=== PATIENT | female | born 1960 | race Caucasian/White ===

== ENCOUNTER 2024-07-07 11:50 | Emergency (ER) | payer MEDICARE, SELFPAY ==
[2024-07-07 12:22] VITALS: BP 103/67; PULSE 84; RESP 18; TEMP 36.9; O2SAT 92; BMI 19.7
--- NOTE | 2024-07-07 13:03 | ED_ITS ---
HPI - General Adult General Chief complaint: Extremity Pain/Injury, Lower Stated complaint: poss R leg wound infection Time Seen by Provider: 07/07/24 12:04 Source: patient Mode of arrival: ambulatory Limitations: no limitations History of Present Illness HPI narrative: 64-year-old female presenting today with concerns about a leg wound infection. Patient hit her leg several weeks ago. Then approximately 2 weeks ago she noticed that there is increased swelling and what she describes as a blood blister. She states that she went to the doctor at that time in the opened up and drained it. Since then the area has been turning darker purple and black. She does have an appointment schedule L line on July 18. She denies any systemic symptoms such as fevers or chills. No nausea or vomiting. PMHx: Oxygen dependent COPD, pulmonary hypertension. 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 Because of this, she takes Xarelto. However, she stop taking her Xarelto about a week or so ago because she was concerned that she was going to ?bleed to ? when she noticed that she had a blood blister. She denies any personal history of blood clots in the past. States that she has a grandfather who had multiple strokes, unclear at what age. Denies any other family history of blood clots. Of note, patient was instructed to be on oxygen at all times. She states that she does not do that because it is not convenient. She does use 3-4 L at night. Patient was a smoker, quit in 1988. Was able to get patient's problem list which does states the patient has a history of chronic pain, hearing loss, polycythemia and hypercoagulopathy, patent ductus arteriosus, Eisenmenger syndrome, and oxygen dependent COPD. Related Data Home Medications ?Medication ?Instructions ?Recorded ?Confirmed albuterol sulfate 90 mcg/actuation inhalation 11/06/22 11/06/22 aerosol inhaler fluticasone fur. 100 mcg-umeclid 1 ea inhalation DAILY 11/06/22 11/06/22 62.5 mcg-vilant 25 mcg inhalat.powder (Trelegy Ellipta) macitentan 10 mg tablet (Opsumit) 10 mg PO DAILY 11/06/22 11/06/22 rivaroxaban 20 mg tablet (Xarelto) 20 mg PO DAILY 11/06/22 11/06/22 sildenafil (pulm.hypertension) 20 mg PO 11/06/22 11/06/22 mg tablet (Revatio) tizanidine 4 mg tablet 4 mg PO QPM 11/06/22 11/06/22 Allergies Allergy/AdvReac Type Severity Reaction Status Date / Time oxycodone Allergy Unknown Shakiness Verified 11/06/22 12:32 Sulfa (Sulfonamide Allergy Unknown Rash Verified 11/06/22 12:32 Antibiotics) Review of Systems Status of ROS: Reports: 10 or more systems reviewed and unremarkable except as noted in History and below Exam Narrative: Exam Narrative: Pain, well-developed patient in no acute distress. Alert and oriented. Answers questions appropriately. Mood and affect are appropriate. Thoughts are goal oriented and rational. No tangential or magical thinking noted. Patient speaks in full sentences without needing to catch her breath. Patient seems to have poor insight into her medical conditions. HEENT: Normocephalic atraumatic. Pupils are equally round reactive to light. Extraocular muscles are intact. Conjunctivae are moist without any icterus noted. Moist mucous membranes. Extremities: Right medial lower leg has a large necrotic area with surrounding violaceous skin. Not significantly hot to touch. She has healing ecchymosis all the way up the lower leg to just distal to the knee. Const: Vital Signs, click to edit/add: Vital Signs - 24 hr 07/07/24 12:22 Temperature 98.5 F Pulse Rate [Pulse Oximeter] 84 Respiratory Rate 18 Blood Pressure [Ri ght Upper Arm] 103/67 Pulse Oximetry 92 Oxygen Delivery Me thod Nasal Cannula Oxygen Flow Rate 3 Course Course ED Course: I spoke to who recommends debridement. I spoke to the patient about doing local anesthesia and debridement in the ER, patient became tearful at this prospect and requested to be put to sleep. Therefore patient will have surgery in the morning. She will be NPO at midnight, continue to hold her Xarelto at this time. We did check blood work today: CBC shows hemoglobin of 17.7, hematocrit is 61.1. Platelet count is 135. Chemistries are unremarkable. Normal CRP. Vital Signs Vital signs: Initial Vital Signs Temperature 98.5 F 07/07/24 12:22 Temperature Source Temporal Artery Scan 07/07/24 12:22 Pulse Rate 84 07/07/24 12:22 Respiratory Rate 18 07/07/24 12:22 Blood Pressure 103/67 07/07/24 12:22 Blood Pressure Mean 79 07/07/24 12:22 Pulse Oximetry 92 07/07/24 12:22 Oxygen Delivery Method Nasal Cannula 07/07/24 12:22 Oxygen Flow Rate 3 07/07/24 12:22 Vital Signs Temperature 98.5 F 07/07/24 12:22 Pulse Rate 84 07/07/24 12:22 Respiratory Rate 18 07/07/24 12:22 Blood Pressure 103/67 07/07/24 12:22 Pulse Oximetry 92 07/07/24 12:22 Oxygen Delivery Method Nasal Cannula 07/07/24 12:22 Oxygen Flow Rate 3 07/07/24 12:22 Temperature 98.5 F 07/07/24 12:22 Pulse Rate 84 07/07/24 12:22 Respiratory Rate 18 07/07/24 12:22 Blood Pressure 103/67 07/07/24 12:22 Pulse Oximetry 92 07/07/24 12:22 Oxygen Delivery Method Nasal Cannula 07/07/24 12:22 Oxygen Flow Rate 3 07/07/24 12:22 Medical Decision Making MDM Narrative Medical decision making narrative: 64-year-old female with a nonhealing wound of the right lower extremity, with an area of necrosis. Patient will proceed to the OR in the morning for debridement. Lab Data Lab results reviewed: Yes I reviewed the patient's lab results Labs: Lab Results 07/07/24 07/07/24 Range/Units 12:51 12:51 WBC 5.10 (4.50-11.00) K/uL RBC 7.11 H (4.00-5.20) m/uL Hgb 17.7 H (12.0-16.0) gm/dL Hct 61.1 H (33.0-51.0) % MCV 86 (80-100) fL MCH 25 L (26-34) pg MCHC 29 L (32-36) gm/dL RDW Coeff of Berny 19.4 H (11.5-15.5) % Plt Count 135 L (140-440) K/uL Neut % (Auto) 70.7 (42.0-72.0) % Lymph % (Auto) 15.3 L (20-44) % [place] % (Auto) 10.4 (0.0-11.0) % Eos % (Auto) 2.4 (0.0-7.0) % Baso % (Auto) 0.8 (0.0-3.0) % Neut # (Auto) 3.61 (1.7-7.0) K/uL Lymph # (Auto) 0.80 L (0.90-2.90) K/uL [place] # (Auto) 0.50 (0.00-0.90) K/UL Eos # (Auto) 0.12 (0.00-0.50) K/uL Baso # (Auto) 0.04 (0.00-0.30) K/uL Abs Immat Gran (auto) 0.02 (0.00-0.30) K/uL Imm/Tot Granulo (auto) 0.4 % Diff Slide Review Acceptable Review (Acceptable) Sodium 135 (135-149) mmol/L Potassium 4.1 (3.6-5.1) mmol/L Chloride 103 (96-114) mmol/L Carbon Dioxide 25 (20-32) mmol/L Anion Gap 7 (7-15) mEq/L BUN 14 (7-30) mg/dL Creatinine 0.7 (0.5-1.5) mg/dL Estimated Creat Clear 42.88 Estimated GFR 97 ml/min Glucose 90 (60-115) mg/dL Calcium 9.0 (8.4-10.6) mg/dL C-Reactive Protein Cancelled < 0.5 L Discharge Plan Discharge Clinical Impression: Non-healing wound Patient Disposition: Home, Self-Care Condition: Stable Additional Instructions: You need to have a procedure to clean out to the wound of your leg. This will be done tomorrow at 9:00 a.m. in the morning. Do not eat anything after midnight. Continue to hold your Xarelto. Prescriptions: No Action tizanidine 4 mg tablet 4 mg PO QPM albuterol sulfate 90 mcg/actuation HFA aerosol inhaler inhalation sildenafil (pulm.hypertension) [Revatio] 20 mg tablet PO Opsumit 10 mg tablet 10 mg PO DAILY Trelegy Ellipta 100-62.5-25 mcg blister with device 1 ea inhalation DAILY Xarelto 20 mg tablet 20 mg PO DAILY Follow Up/Referrals: Provider,Not a Local [Primary Care Provider] - Stand Alone Forms: MyHealth Info Instructions
[2024-07-07 13:04] LABS: Basophils Absolute Auto 0.04 K/uL (0.00-0.30); Basophils Percent Auto 0.8 % (0.0-3.0); Eosinophils Absolute Auto 0.12 K/uL (0.00-0.50); Eosinophils Percent Auto 2.4 % (0.0-7.0); Hematocrit 61.1 % (33.0-51.0); Hemoglobin* 17.7 gm/dL (12.0-16.0); Immature Granulocytes Abs Auto 0.02 K/uL (0.00-0.30); Immature Granulocytes Pct Auto 0.4 %; Lymphocytes Percent Auto 15.3 % (20-44); Mean Corpuscular HGB Conc 29 gm/dL (32-36); Mean Corpuscular Hemoglobin 25 pg (26-34); Mean Corpuscular Volume 86 fL (80-100); Monocytes Percent Auto 10.4 % (0.0-11.0); Neutrophils Absolute Auto 3.61 K/uL (1.7-7.0); Neutrophils Percent Auto 70.7 % (42.0-72.0); Platelet Count* 135 K/uL (140-440); RDW Coefficient of Variation % 19.4 % (11.5-15.5); Red Blood Count 7.11 m/uL (4.00-5.20)
[2024-07-07 13:06] LABS: Slide Review Reflex Yes
[2024-07-07 13:19] LABS: Slide Review Acceptable Review (Acceptable)
[2024-07-07 13:32] LABS: Chloride* 103 mmol/L (96-114); Potassium* 4.1 mmol/L (3.6-5.1); Sodium* 135 mmol/L (135-149)
[2024-07-07 13:35] LABS: Anion Gap 7 mEq/L (7-15); Blood Urea Nitrogen* 14 mg/dL (7-30); Carbon Dioxide* 25 mmol/L (20-32); Creatinine* 0.7 mg/dL (0.5-1.5); Est. Creatinine Clearance* 42.88; Estimated Glomerular Filt Rate 97 ml/min
[2024-07-07 13:36] LABS: Glucose* 90 mg/dL (60-115)
[2024-07-07 13:40] LABS: C Reactive Protein* < 0.5 mg/dL (0.5-1.0)
== END 2024-07-07 13:51 | disposition home or self-care (01) ==
PROVIDERS: Emergency Provider Family Medicine
DX: S81.801A Unspecified open wound, right lower leg, initial encounter (principal); I96 Gangrene, not elsewhere classified
CPT/HCPCS: 36415; 80048; 85025; 86140; 99283; 99284

== ENCOUNTER 2024-07-08 06:57 | Day surgery (SDC) | payer MEDICARE, SELFPAY ==
[2024-07-08] VITALS (13 sets, daily range): BP systolic 107–134; BP diastolic 61–93; PULSE 69–92; RESP 16–18; TEMP 36.3–36.4; O2SAT 85–97
--- NOTE | 2024-07-08 10:01 | P.GSCN_ITS ---
History of Present Illness Consult details Date Seen: 07/08/24 Consult date: 07/08/24 Narrative: Patient presented to the ED last night for evaluation of a wound on her RLE. She got the wound after falling at work on 06/13/24. 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 Right after the injury she was able to walk, but had a large blood blister that formed. Patient is on Xarelto. She went to her primary care provider, who took an x-ray of the area with no noted fracture. The patient's friend drained a fluid collection that formed by poking the area with an insulin syringe. This helped, but the swelling reaccumulated. She went to the emergency department on 06/26/2024 at [facility]. An ultrasound ruled out any underlying DVT. There was a large fluid collection seen on imaging, likely a hematoma. Due to the concern for infection and I and D was done at this area. A copious amount of clot was extracted and a dressing applied. She was given a course of antibiotics, Keflex for 7 days. The area is still very tender to the touch and she was unable to tolerate any sort of debridement last night in the emergency department. She denies any fevers or chills at home. She does have an appointment with the [facility] on 07/18/2024. Past medical history is significant for significant pulmonary hypertension, COPD, oxygen dependence (3 L) with baseline oxygenation in the 80s. Patient does admit to only using oxygen at night because she finds it cumbersome to use during the day. She is not actively smoking. She does admit to an overall poor diet. She has a history of Eisenmenger syndrome, polycythemia vera and hypercoagulability. She does normally takes Xarelto but has not for the last 6 days for concern for bleeding. Review of Systems Status of ROS: Reports: 6 or more systems reviewed and unremarkable except as noted in History and below [facility] Social History Smoking Status: Never smoker Do you use any of these nicotine containing products: None How often do you have a drink containing alcohol: never How often do you have six or more drinks on one occasion: Never AUDIT-C Alcohol total score: 0 Non-prescribed substance use: denies use Meds Home Medications and Allergies Home Medications ?Medication ?Instructions ?Recorded ?Confirmed ?Type albuterol sulfate 90 mcg/actuation 2 puff inhalation Q4H PRN 11/06/22 07/08/24 History aerosol inhaler fluticasone fur. 100 mcg-umeclid 1 inh inhalation DAILY 11/06/22 07/08/24 History 62.5 mcg-vilant 25 mcg inhalat.powder (Trelegy Ellipta) macitentan 10 mg tablet (Opsumit) 10 mg PO DAILY 11/06/22 07/08/24 History rivaroxaban 20 mg tablet (Xarelto) 20 mg PO DAILY 11/06/22 07/08/24 History sildenafil (pulm.hypertension) 20 40 - 60 mg PO TID 11/06/22 07/08/24 History mg tablet (Revatio) tramadol 50 mg tablet 50 mg PO TID PRN 07/08/24 07/08/24 History Allergies Allergy/AdvReac Type Severity Reaction Status Date / Time oxycodone Allergy Unknown Shakiness Verified 11/06/22 12:32 Sulfa (Sulfonamide Allergy Unknown Rash Verified 11/06/22 12:32 Antibiotics) Exam Narrative: Exam Narrative: General: Alert and oriented, nontoxic. Very teary and anxious Respiratory: Equal breath rise bilaterally, maintained on room air CV: Well perfused Extremities: No edema noted bilaterally. Right lower extremity with dressing in place. Dressing was removed. She has a wound measuring approximately 5 x 4 cm in size. Central area of necrotic tissue. Periwound with erythema and induration, tender to the touch and blanching. Throughout the right lower ext remity is a resolving ecchymoses. No active drainage from the wound. Const: Vital Signs, click to edit/add: Vital Signs - 24 hr 07/08/24 07:42 Pulse Rate 75 Respiratory Rate 18 Blood Pressure 117/64 Pulse Oximetry 92 Oxygen Delivery Me thod Nasal Cannula Oxygen Flow Rate 2.5 Results Labs Labs: Hemoglobin 17.7, WBC 5 chemistry within normal limits. CRP less than 0.5 Progress Note:A&P Assessment and plan (1) Non-healing wound: Status: Acute Assessment and Plan: Patient with a nonhealing right lower extremity wound secondary to trauma. There is a large area of necrosis that requires debridement. Patient is unable to tolerate a bedside debridement, so will perform in the operating room with the assistance of Anesthesia. I am concerned about an infection given the periwound erythema and induration. Will plan to culture the wound intraoperatively and discharge the patient on a course of antibiotics. She did recently finished a course of Keflex, with no improvement. Given the persistence of infection and the patient's off allergy will do a 10 day course of clindamycin. Recommend she keep her appointment at the [facility] Center on 07/18/2024.
[2024-07-08] MEDS: 0.9 % SODIUM CHLORIDE 1000 ml 500 ML 75 ML IV (11:29)
[2024-07-08] MEDS: CEFAZOLIN 1 GM inj IVP (11:38)
--- NOTE | 2024-07-08 12:15 | PM.GSPRC ---
Operative Note Date of procedure: 07/08/24 Pre-op diagnosis: Right lower extremity wound Post-op diagnosis: Same Type of Procedure: Excisional debridement of right lower extremity wound Indications: Patient is a 64-year-old female who presented to the emergency department with a chronic right lower extremity wound following a fall 3 weeks earlier. Due to the amount of necrotic tissue that was present was advised that patient undergo excisional debridement. Patient is requesting this be performed in the operating room with sedation. Risks and benefits of the procedure were discussed at length the patient. Risks included, but were not limited to: Bleeding, infection and possible need for additional procedures. Patient does understand that she is at increased risk for complication associated with anesthesia due to her complex past medical history, which includes severe pulmonary hypertension. All questions and concerns were addressed with patient agreeing to proceed. Procedure Description: After discussing the risks and benefits of the procedure, the patient signed informed consent.? The operative site was marked and the patient was brought to the operating room and placed on the operating table in supine position.? Care was taken to pad the patient's pressure points.?? The patient was then sedated and intubated with an LMA by anesthesia.?? The operative site was then prepped and draped in the usual sterile fashion.? A time-out was then performed. The wound measured 5.5 x 2 cm x 0.1 cm in depth. A large amount of necrotic skin and fat was present. This was sharply debrided down to healthy bleeding subcutaneous fat. A superficial, coagulated vein was appreciated within the operative field. This was tied off with 3-0 Vicryl ties. The final measurements of the wound were 7 cm x 2 cm x 1 cm in depth. The surrounding periwound did have erythema and induration. There was no purulence of the wound. A piece of tissue that was excised was sent for culture. Sterile dressings of Medihoney, Xeroform and outer 4 x 4/Kerlix/Ayden wrap was then applied. ? The patient was then woken and transported to the recovery area in stable condition. ? The patient tolerated the procedure well. Findings: Wound measuring 7 x 2 x 1 cm, debridement of necrotic skin and fat Anesthesia: GETA Surgeon: Catherine Burgess MD Estimated blood loss (mL): 5 Additional Specimen Information: Tissue sent for culture Condition: stable Disposition: PACU
--- NOTE | 2024-07-08 12:26 | P.ANES_ITS ---
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
[2024-07-08] MEDS: 0.9 % SODIUM CHLORIDE 500 ML 500 ML IV (12:48)
--- NOTE | 2024-07-08 15:05 | PC.NURSE ---
Nursing Care Hours: [id number] Pt ambulated onto the unit with SO. Preop checklist done, EKG done, IV started. VSS, pain tolerable per pt. O2 was 85% on RA and pt states this is normal during the day, uses O2 NOC and only during the day as needed. Consent signed. Pt arrived from PACU at 1255 alert and oriented, no c/o pain or nausea. VSS. Up to bathroom wit SB assist, tolerated well. Pulse faint to bilat feet. Cap refill greater than three but warm, and CMS intact. Pt ate lunch without nausea. IV dc'd and forms signed. Reviewed how to shower and change bandage. Discussed how to make f/u appt who to contact with concerns.
== END 2024-07-08 14:47 | disposition home or self-care (01) ==
LOC: MS OUT 07:04 → MEDSURG 07:07
PROVIDERS: Visit Provider Surgery
PROC: (CPT 11043; principal; 2024-07-08 09:00)
DX: L97.813 Non-pressure chronic ulcer of other part of right lower leg with necrosis of muscle (principal); I27.20 Pulmonary hypertension, unspecified; J44.9 Chronic obstructive pulmonary disease, unspecified; Z99.81 Dependence on supplemental oxygen; D45 Polycythemia vera; Z79.01 Long term (current) use of anticoagulants; D68.69 Other thrombophilia
CPT/HCPCS: 11043; 01470; 87070; 87075; 87205; 99140; J0690; J1100; J2371; J2704; J3010; J7030

== ENCOUNTER 2024-07-16 13:43 | Outpatient (CLI) | payer MEDICARE, SELFPAY | END 2024-07-16 13:44 | disposition home or self-care (01) | PROVIDERS: PCP Orthopaedic Surgery; Visit Provider Nurse Practitioner Family | DX: I27.20 Pulmonary hypertension, unspecified (principal); L97.818 Non-pressure chronic ulcer of other part of right lower leg with other specified severity; I27.81 Cor pulmonale (chronic); Q25.0 Patent ductus arteriosus; Z79.01 Long term (current) use of anticoagulants | CPT/HCPCS: 11043; G0463 ==

== ENCOUNTER 2024-07-23 12:47 | Outpatient (CLI) | payer MEDICARE, SELFPAY | END 2024-07-23 12:48 | disposition home or self-care (01) | LOC: WOUND 12:47 | PROVIDERS: PCP Orthopaedic Surgery; Visit Provider Nurse Practitioner Family | DX: I27.20 Pulmonary hypertension, unspecified (principal); L97.818 Non-pressure chronic ulcer of other part of right lower leg with other specified severity; Z79.01 Long term (current) use of anticoagulants | CPT/HCPCS: 11042 ==

== ENCOUNTER 2024-07-30 12:49 | Outpatient (CLI) | payer MEDICARE, SELFPAY ==
--- NOTE | 2024-07-30 13:00 | CRLHL7_ITS ---
For Patients: As a result of the Century Cures Act, medical imaging exams and procedure reports are released immediately into your electronic medical record. You may view this report before your referring provider. If you have questions, please contact your health care provider. DUPLEX ARTERIAL ULTRASOUND BILATERAL LOWER EXTREMITIES CLINICAL HISTORY: Nonhealing right lower extremity wound. COMPARISON: None. TECHNIQUE: The bilateral lower extremity arteries were examined per exam specific protocol with candelario-scale ultrasound, color-flow and Doppler spectral analysis. Peak systolic velocities (PSV), Doppler waveform quality and velocity ratios, if applicable, were documented at sites per exam specific protocol. FINDINGS: RIGHT: PSV (cm/sec). Waveform (T-Tri, B-Bi, M-Stonewall). MEDICAL LABORATORY SCIENTIST: 122.3. T. DFA: 70.7. T. FA PRX: 83.1. T. FA MID: 107.7. T. FA DISTAL: 87.5. B. POP A: 68.3. T. DANYELLE A: 50.0. B. INFORMATION SECURITY ARCHITECT: 44.6. B. VIBHA: 40.1. B. DPA: 32.4. B. LEFT: PSV (cm/sec). Waveform (T-Tri, B-Bi, M-Stonewall). MEDICAL LABORATORY SCIENTIST: 83.9. T. DFA: 82.9. B. FA PRX: 87.6. T. FA MID: 115.7. T. FA DISTAL: 75.6. B. POP A: 62.3. B. DANYELLE A: 56.7. B. INFORMATION SECURITY ARCHITECT: 50.3. B. VIBHA: 30.4. B. DPA: 39.8. B. IMPRESSION: Multiphasic waveforms throughout both lower extremity arterial systems. No evidence of hemodynamically-significant stenoses or occlusions. DAKOTA STINSON M.D. [email or web address] Transcribed: 6:[address]/Dictated by: Dakota Stinson MD @ 07/30/2024 5:02:00 PM (Electronically Signed)
== END 2024-07-30 12:50 | disposition home or self-care (01) ==
LOC: US 12:50
PROVIDERS: PCP Orthopaedic Surgery; Visit Provider Nurse Practitioner Family
DX: L97.215 Non-pressure chronic ulcer of right calf with muscle involvement without evidence of necrosis (principal)
CPT/HCPCS: 93926

== ENCOUNTER 2024-07-30 13:59 | Outpatient (CLI) | payer MEDICARE, SELFPAY | END 2024-07-30 14:00 | disposition home or self-care (01) | LOC: WOUND 13:59 | PROVIDERS: PCP Orthopaedic Surgery; Visit Provider Nurse Practitioner Family | DX: I27.20 Pulmonary hypertension, unspecified (principal); L97.818 Non-pressure chronic ulcer of other part of right lower leg with other specified severity; I27.81 Cor pulmonale (chronic); Z79.01 Long term (current) use of anticoagulants | CPT/HCPCS: 11042 ==

== ENCOUNTER 2024-08-06 15:26 | Outpatient (CLI) | payer MEDICARE, SELFPAY | END 2024-08-06 15:27 | disposition home or self-care (01) | LOC: WOUND 15:26 | PROVIDERS: PCP Orthopaedic Surgery; Visit Provider Nurse Practitioner Family | DX: I27.20 Pulmonary hypertension, unspecified (principal); L97.818 Non-pressure chronic ulcer of other part of right lower leg with other specified severity; Z79.01 Long term (current) use of anticoagulants | CPT/HCPCS: 11042 ==

== ENCOUNTER 2024-08-13 11:34 | Outpatient (CLI) | payer MEDICARE, SELFPAY | END 2024-08-13 11:35 | disposition home or self-care (01) | LOC: WOUND 11:34 | PROVIDERS: Visit Provider Nurse Practitioner Family | DX: I27.20 Pulmonary hypertension, unspecified (principal); L97.818 Non-pressure chronic ulcer of other part of right lower leg with other specified severity; Z79.01 Long term (current) use of anticoagulants | CPT/HCPCS: 11042 ==

== ENCOUNTER 2024-08-20 11:23 | Outpatient (CLI) | payer MEDICARE, SELFPAY | END 2024-08-20 11:24 | disposition home or self-care (01) | LOC: WOUND 11:24 | PROVIDERS: PCP Orthopaedic Surgery; Visit Provider Nurse Practitioner Family | DX: T81.31XA Disruption of external operation (surgical) wound, not elsewhere classified, initial encounter (principal); I27.20 Pulmonary hypertension, unspecified; Z79.01 Long term (current) use of anticoagulants | CPT/HCPCS: 11042 ==

== ENCOUNTER 2024-08-27 09:38 | Outpatient (CLI) | payer MEDICARE, SELFPAY | END 2024-08-27 09:39 | disposition home or self-care (01) | PROVIDERS: PCP Orthopaedic Surgery; Visit Provider Nurse Practitioner Family | DX: T81.31XA Disruption of external operation (surgical) wound, not elsewhere classified, initial encounter (principal); L97.818 Non-pressure chronic ulcer of other part of right lower leg with other specified severity; I27.81 Cor pulmonale (chronic); Z79.01 Long term (current) use of anticoagulants | CPT/HCPCS: 11042 ==

== ENCOUNTER 2024-09-03 11:33 | Outpatient (CLI) | payer MEDICARE, SELFPAY | END 2024-09-03 11:34 | disposition home or self-care (01) | LOC: WOUND 11:33 | PROVIDERS: PCP Orthopaedic Surgery; Visit Provider Nurse Practitioner Family | DX: T81.31XA Disruption of external operation (surgical) wound, not elsewhere classified, initial encounter (principal); L97.818 Non-pressure chronic ulcer of other part of right lower leg with other specified severity; I27.81 Cor pulmonale (chronic); Z79.01 Long term (current) use of anticoagulants | CPT/HCPCS: 97597 ==

== ENCOUNTER 2024-09-05 16:12 | Emergency (ER) | payer MEDICARE, SELFPAY ==
--- OUTSIDE RECORDS SUMMARY | 2024-09-05 16:15 | XMS_ITS | Clinical Summary ---
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 8.8 - 10.4 mg/dL 06/20/2024 11:16 AM [facility] Comment:Reference intervals for this test were updated on 01/24/2024 to reflect our healthy population more accurately. There may be differences in the flagging of prior results with similar values performed with this method. Those prior results can be interpreted in the context of the updated reference intervals. Glucose 124(H) 70 - 99 mg/dL 06/20/2024 11:16 AM [facility] Blood BLOOD SPECIMEN / Unknown Venipuncture / Unknown 06/20/2024 10:27 AM [facility] OPER[facility] 06/20/2024 10:46 AM [facility] us Wilber Vasquez MD LAB - BLOOD ORDERABLES Final Result LABORATORY [facility] [address] Lab (1st floor, no room number) [place] [address], [facility] * Chest CT w/o contrast (05/29/2020 2:25 PM P[facility] CRANE OPERATOR) Anatomical Region Laterality Modality Chest, SUBRAD CT BODY, UMP CT CHEST, RAD CT Computed Tomography Impressions 05/29/2020 4:07 PM PIT CRANE OPERATOR IMPRESSION: 1. No acute fractures are seen. No effusions or pneumothorax. 2. Subtle small groundglass opacities in both lungs may relate to an atypical infectious etiology versus an inflammatory etiology. 3. Coronary artery calcifications. 4. Gallstones. GLORIA GALDAMEZ MD Narrative 05/29/2020 4:[address] CHEST WITHOUT CONTRAST 05/29/2020 2:25 PM CLINICAL HISTORY: Rib fractures on chest x-ray uncertain. TECHNIQUE: CT chest without IV contrast. Multiplanar reformats were obtained. Dose reduction techniques were used. CONTRAST: None. COMPARISON: Chest x-ray 05/29/2020. FINDINGS: LUNGS AND PLEURA: No effusions or pneumothorax. No dense consolidation is noted. However, there are subtle small areas of groundglass opacity noted within the bilateral lungs that are very ill-defined and mildly nodular in configuration. An example is seen at the posterior right upper lobe, for instance series 4 image 103. MEDIASTINUM/AXILLAE: No lymphadenopathy. No thoracic aortic aneurysm. Coronary artery calcifications. Calcifications of the pulmonary arteries and thoracic aorta noted. UPPER ABDOMEN: Cholelithiasis. MUSCULOSKELETAL: No acute fractures are seen. Procedure Note Gloria Galdamez MD - 05/29/2020 CT CHEST WITHOUT CONTRAST 05/29/2020 2:25 PM CLINICAL HISTORY: Rib fractures on chest x-ray uncertain. TECHNIQUE: CT chest without IV contrast. Multiplanar reformats were obtained. Dose reduction techniques were used. CONTRAST: None. COMPARISON: Chest x-ray 05/29/2020. FINDINGS: LUNGS AND PLEURA: No effusions or pneumothorax. No dense consolidation is noted. However, there are subtle small areas of groundglass opacity noted within the bilateral lungs that are very ill-defined and mildly nodular in configuration. An example is seen at the posterior right upper lobe, for instance series 4 image 103. MEDIASTINUM/AXILLAE: No lymphadenopathy. No thoracic aortic aneurysm. Coronary artery calcifications. Calcifications of the pulmonary arteries and thoracic aorta noted. UPPER ABDOMEN: Cholelithiasis. MUSCULOSKELETAL: No acute fractures are seen. IMPRESSION: 1. No acute fractures are seen. No effusions or pneumothorax. 2. Subtle small groundglass opacities in both lungs may relate to an atypical infectious etiology versus an inflammatory etiology. 3. Coronary artery calcifications. 4. Gallstones. GLORIA GALDAMEZ MD Marisela Johnson MD IM CT ORDERABLES Final Re sult * COLONOSCOPY (09/29/2016 12:39 PM CDT) COLONOSCOPY [facility] Patient Name: Natalya Lynne Procedure Date: 09/29/2016 12:39 PM Date of : 1960 Admit Type: Inpatient Age: 56 Gender: Female Attending MD: Brenton Huoston MD Total Sedation Time: Instrument Name: 123 Procedure: Colonoscopy Indications: Treatment of bleeding from polypectomy site Providers: Brenton Houston MD (Doctor) Referring MD: Medicines: Fentanyl 100 micrograms IV, Midazolam 2 mg IV Complications: No immediate complications. Procedure: Pre-Anesthesia Assessment: - Prior to the procedure, a History and Physical was performed, and patient medications and allergies were reviewed. The patient is competent. The risks and benefits of the procedure and the sedation options and risks were discussed with the patient. All questions were answered and informed consent was obtained. Patient identification and proposed procedure were verified by the physician and the nurse in the procedure room. Mental Status Examination: alert and oriented. Airway Examination: normal oropharyngeal airway and neck mobility and Mallampati Class I (tonsillar pillars visualized). Respiratory Examination: clear to auscultation. CV Examination: RRR, no murmurs, no S3 or S4. ASA Grade Assessment: III - A patient with severe systemic disease. After reviewing the risks and benefits, the patient was deemed in satisfactory condition to undergo the procedure. The anesthesia plan was to use moderate sedation / analgesia (conscious sedation). Immediately prior to administration of medications, the patient was re-assessed for adequacy to receive sedatives. The heart rate, respiratory rate, oxygen saturations, blood pressure, adequacy of pulmonary ventilation, and response to care were monitored throughout the procedure. The physical status of the patient was re-assessed after the procedure. - The anesthesia plan was to use moderate sedation/analgesia (conscious sedation). - Immediately prior to administration of medications, the patient was re-assessed for adequacy to receive sedatives. After obtaining informed consent, the colonoscope was passed under direct vision. Throughout the procedure, the patient's blood pressure, pulse, and oxygen saturations were monitored continuously. The Olympus Adult Colonoscope Model #[id number], Endora#123, SN#[id number] was introduced through the anus and advanced to the cecum, identified by appendiceal orifice and ileocecal valve. The colonoscopy was performed without difficulty. The patient tolerated the procedure well. The ileocecal valve, appendiceal orifice and rectum were photographed. The entire colon was examined. The quality of the bowel preparation was fair. Findings: The perianal and digital rectal examinations were normal. A single (solitary) ten mm post polypextomy ulcer was found in the mid ascending colon. No bleeding was present. Stigmata of recent bleeding were present. To prevent bleeding after the prior polypectomy site with ulceration, three hemostatic clips were successfully placed. There was no bleeding during, and at the end, of the procedure. The exam was otherwise without abnormality on direct and retroflexion views. Impression: - A single (solitary) ulcer in the mid ascending colon. Clips were placed. - The examination was otherwise normal on direct and retroflexion views. Recommendation: - Return patient to hospital cook for ongoing care. - Clear liquid diet. GI will advance in the AM to low residue diet. - CBC, CMP am. - Will need to hold Xarelto for 2 weeks given the endoscopic appearance of this ulcer and high risk for ongoing bleeding with anticoagulation. - Will follow. Please call with questions. Brenton Houston MD 09/29/2016 1:19 PM I was physically present for the entire viewing portion of the exam. Brenton Houston MD Number of Addenda: 0 Note Initiated On: 09/29/2016 12:39 PM Procedure Date: 09/29/2016 12:39:30 PM Scope Withdrawal Time: 0 hours 7 minutes 2 seconds Total Procedure Duration: 0 hours 11 minutes 7 seconds Estimated Blood Loss: Scope In: 12:57:45 PM Scope Out: 1:08:52 PM RADIOLOGY RESULTS 09/29/2016 12:3 9 PM CDT Brenton Houston MD PROCEDURES Fin al Result RADIOLOGY RESULTS from Last 3 Months or Most Recently Relevant to Health Maintenance Insurance [employer] MEDICARE ADVANTAGE [employer] MEDICARE ADVANTAGE WC OTHER Advance Directives For more information, please contact: [phone] * Full Code (Latest Code Status on File) Date Activated Date Inactivated Comments 09/30/2016 12:56 PM 03/05/2020 2:38 PM * Full Code Date Activated Date Inactivated Comments 09/26/2016 1:09 PM 09/30/2016 12:56 PM Care Teams Educational Director Relationship Specialty [place] [address] [place] [address] PCP - General 08/24/18 Roosevelt Cuvea MD [address] [place] [address] Cardiovascular Disease 11/11/21
--- OUTSIDE RECORDS SUMMARY | 2024-09-05 16:15 | XMS_ITS | Clinical Summary ---
Author Organization [facility] Address [address] [place] [address] Care Team Providers Care Buffing Wheel Operator Name Role Phone Carlos A Barajas Primary Care Provider [phone] Clinic, Not Listed Unavailable Unavailable Allergies Active Allergy Reactions Criticality Noted Date Comments Oxycodone 03/26/2021 Other reaction(s): Itching Oxycodone-Acetaminophen Itching 02/04/2012 Sulfa (Sulfonamide Antibiotics) 03/26/2021 Other reaction(s): UNK Medications CALCIUM-VITAMI N D3 ORAL Active NYSTATIN-MUPIR OCIN 2% IN LIDOCAINE 2% (AMBULATORY) three times a day. Active albuterol HFA (PROVENTIL;YULIYA TOLIN HFA) 90 mcg/actuation Inhl inhaler albuterol sulfate HFA 90 mcg/actuation aerosol inhaler INHALE 2 PUFFS BY MOUTH EVERY 4 HOURS NEEDED 1 Active benzonatate (TESSALON PERLES) 200 mg oral capsule Take 200 mg by mouth. 1 Active fluticasone-um eclidin-vilant er 100-62.5-25 mcg Inhl DsDv Trelegy Ellipta 100 mcg-62.5 mcg-25 mcg powder for inhalation INHALE 1 PUFF BY MOUTH EVERY DAY 0 Active hydrocortisone (HYTONE) 2.5 % cream Daily. Active loratadine (CLARITIN) 10 mg oral tablet Daily. Activ e sildenafil, antihypertensi ve, (REVATIO) 20 mg oral tablet Revatio 20 mg tablet 2 Active traMADoL (ULTRAM) 50 mg oral tablet tramadol 50 mg tablet TAKE 1 TABLET BY MOUTH TWICE DAILY FOR 15 DAYS NEEDED 1 Active rivaroxaban (XARELTO) 20 mg oral tablet Xarelto 20 mg tablet 1 Active macitentan 10 mg oral Tab Take 10 mg by mouth Daily. Active Vit B Comp & C-Vit E-FA-Bernadette-Zn 0.4 mg oral Tab Daily. 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 Gender Identity Not on file Sexual Orientation Not on file Last Filed Vital Signs Vital Sign Reading Time Taken Comments Blood Pressure 115/77 11/06/2021 11:56 AM CDT Pulse 88 11/06/2021 11:56 AM CDT Temperature - - Respiratory Rate - - Oxygen Saturation - - Inhaled Oxygen Concentration - - Weight 57.6 kg (127 lb) 11/06/2021 11:56 AM CDT Height 154.9 cm (5' 1) 11/06/2021 11:56 AM CDT Body Mass Index 24 11/06/2021 11:56 AM CDT Plan of Treatment Health Maintenance Due Date Last Done Comments Colonoscopy 1960 Hepatitis C Screening 1960 Lipid Screening 1960 Medicare Wellness Visit 1960 Pap Smear 1960 Anxiety Screening (TORI-2) 1962 Depression Assessment (PHQ-2) 1961 Pneumococcal 50+ Years (1 of 2 - PCV) 02/15/1980 Yearly Review of HCD 2011 Zoster Vaccine (1 of 2) 2011 RSV Vaccines (1 - Risk 60-74 years 1-dose series) 2021 Mammogram Screening 04/06/2021 04/06/2019, 1 Adult Tetanus Booster 01/16/2022 01/17/2012 COVID-19 Vaccine ( - season) 2024 Influenza Vaccine (#1) 2024 Insurance [facility] MEDICARE ADVANTAGE Care Teams Buffing Wheel Operator Relationship Specialty [place] [address] [place] [address] PCP - General Family Medicine 07/21/21 Clinic, Not Listed PCP - Primary Care Clinic 07/21/21
--- OUTSIDE RECORDS SUMMARY | 2024-09-05 16:15 | XMS_ITS | Encounter Summary ---
Author Organization [facility] Address [facility] [place] [address] Care Team Providers Care Election Assistant Name Role Phone Lisseth, José [place] Primary Care Provider Carlos A Barajas DO Primary Care Provider [phone] Ruslan Ruiz Chi OD Unavailable [phone] Roosevelt Cueva MD Unavailable [phone] Encounter Details Date Type Department Care Team (Late st Contact Info) Description 08/16/2018 [facility] Respiratory Therapy [address] [place] [id number] [place] [address] [place] [address] Moderate persistent asthma without complication (Primary Dx) Social History Tobacco Use Types Packs/Day Years Used Date Smoking Tobacco: Former Alcohol Use Standard Drinks/Week Comments Yes 0 (1 standard drink = 0.6 oz pur e alcohol) once a month Comments No Sex and Gender Information Value Date Recorded Sex Assigned at Not on file Legal Sex Female 3:05 AM PRODUCTION SUPPORT MANAGER Gender Identity Not on file Sexual Orientation Not on file documented as of this encounter Plan of Treatment Not on file documented as of this encounter Results * General PFT Lab (Please always keep checked) (08/24/2018 2:15 PM PRODUCTION SUPPORT MANAGER) FVC-Pred 2.92 L [facility] PFT FVC-Pre 1.59 L [facility] PFT FVC-%Pred-Pre 54 % [facility] FEV1-Pre 1.00 L [facility] PFT FEV1-%Pred-Pre 43 % [facility] PFT [id number] 80 % [facility] PFT [id number] 63 % [facility] PFT FEFMax-Pred 6.00 L/sec [facility]REEZE PFT FEFMax-Pre 2.67 L/sec BREEZE PFT FEFMax-%Pred-Pr e 44 % [facility]ZE PFT [id number] 2.25 L/sec [facility]REEZE PFT [id number] 0.52 L/sec BREEZE PFT [id number]-%Pred-P re 23 % BREEZE PFT [id number] 0.85 L/sec BREEZE PFT [id number]-%Pred-P ost 37 % [facility]ZE PFT ExpTime-Pre 10.13 sec BREEZE PFT FIFMax-Pre 1.07 L/sec BREEZE PFT VC-Pred 2.95 L [facility] PFT VC-Pre 1.62 L [facility] PFT VC-%Pred-Pre 54 % [facility]ZE PFT IC-Pred 2.05 L [facility] PFT IC-Pre 1.15 L [facility]REEZE PFT IC-%Pred-Pre 56 % [facility]ZE PFT ERV-Pred 0.90 L [facility] PFT ERV-Pre 0.47 L [facility]REEZE PFT ERV-%Pred-Pre 51 % [facility]ZE PFT [id number] 81 % [facility]ZE PFT [id number] 66 % BREEZE PFT FRCPleth-Pred 2.53 L BREEZE PFT FRCPleth-Pre 2.76 L BREEZE PFT FRCPleth-%Pred- Pre 109 % BREEZE PFT RVPleth-Pred 1.72 L [facility]REEZE PFT RVPleth-Pre 2.29 L BREEZE PFT RVPleth-%Pred-P re 133 % BREEZE PFT TLCPleth-Pred 4.44 L BREEZE PFT TLCPleth-Pre 3.91 L BREEZE PFT TLCPleth-%Pred- Pre 88 % BREEZE PFT DLCOunc-Pred 18.44 ml/min/mmHg BREEZE PFT [id number] 79 % BREEZE PFT [id number] 62 % BREEZE PFT 08/24/2018 2:15 PM PRODUCTION SUPPORT MANAGER Martin Rivera LoganEva DO PFT ORDERABLES Edit ed Result - Final B[facility]ZE PFT documented in this encounter Visit Diagnoses Diagnosis Moderate persistent asthma without complication- Primary Unspecified asthma documented in this encounter Care Teams Election Assistant Relationship Specialty Start Date End Date [facility], [address] [address] PCP - General 02/01/12 08/23/18 [place] [address] [place] [address] PCP - General 08/24/18 Ruslan Ruiz Chi, OD [address] [place] [address] Assigned Surgical Provider 05/02/20 09/05/21 Roosevelt Cueva MD [address] [place] [address] Cardiovascular Disease 11/11/21 documented as of this encounter
--- OUTSIDE RECORDS SUMMARY | 2024-09-05 16:15 | XMS_ITS | Referral Summary ---
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
--- OUTSIDE RECORDS SUMMARY | 2024-09-05 16:15 | XMS_ITS | Clinical Summary ---
Author Organization [facility] Address [address] [place] [id number] Care Team Providers Care Environmental Designer Name Role Phone Coordinators, Pulmonary Htn Unavailable [phone] Carlos A Barajas DO Primary Care Provider [phone] Allergies Active Allergy Reactions Criticality Noted Date Comments Oxycodone Itching 03/26/2021 Other reaction(s): Itching Oxycodone-Acetaminoph en Itching 02/04/2012 Sulfa (Sulfonamide Antibiotics) Rash,Throat Swelling/Closing High Medications MULTIVITAMIN TAB take 1 tablet by oral route once daily with food 0 05/10/20 06 Active medication order composer Natures Measure- Calcium with Vitamin D- Once Daily 0 04/13/20 16 Active loratadine (CLARITIN) 10 mg tablet Take 20 mg by mouth once daily. Active oxygen-air delivery systems (HOME OXYGEN)Indication s:Pulmonary hypertension (HC),Primary pulmonary hypertension (HC) Oxygen for home use. Liters per minute: 4 per nasal cannula. Frequency of use: Nocturnal;. Length of need: 99 Months. 1 Device 08/13/19 20 Active Additional Information Patient taking differently: Oxygen for home use. Liters per minute: 3 per nasal cannula. Frequency of use: Nocturnal;. Length of need: 99 Months.Uses at night, PRN during day (rarely), Reported on 07/16/2024 Vit B Comp & C-Vit E-FA-Bernadette-Zn 0.4 mg tab 1 tablet Active acetaminophen (TYLENOL) 325 mg tabletIndications :Mixed conductive and sensorineural hearing loss of both ears Take 2 Tablets (650 mg) by mouth four times daily. Max daily dose from all sources is 4000 mg/day. 100 Tablet 2 11:37 AM CDT 03/12/20 22 Active Additional Information Patient taking differently:650 mg Oral QID,PRN, Reported on 07/26/2024 albuterol HFA (Ventolin HFA) 90 mcg/actuation inhalerIndication s:Moderate persistent asthma without complication Inhale 2 Puffs by mouth every 4 hours if needed for Shortness Of Breath. 3 Each 10/08/19 23 Active traMADoL (ULTRAM) 50 mg tablet Take 50 mg by mouth four times daily. Active Opsumit 10 mg tab tabletIndications :Primary pulmonary hypertension (HC),SOB (shortness of breath) TAKE 1 TABLET (10 MG) BY MOUTH ONCE DAILY 30 Tablet 09/05/19 24 Active rivaroxaban (Xarelto) 20 mg tabletIndications :Pulmonary hypertension (HC) Take 1 Tablet (20 mg) by mouth once daily with evening meal. 90 Tablet 1 09/14/19 24 Active sildenafiL, pulm.hypertension , (Revatio) 20 mg tabletIndications :Primary pulmonary hypertension (HC) TAKE 3 TABLETS BY MOUTH EVERY MORNING, 3 TABLETS EVERY AFTERNOON AND 2 TABLETS EVERY EVENING 240 Tablet 10/24/19 24 Active oxygen-air delivery systems (HOME OXYGEN)Indication s:Chronic obstructive pulmonary disease, unspecified COPD type (HC) Oxygen for home use. Liters per minute: 5 LPM per nasal cannula. Frequency of use: Nocturnal;. Length of need: 99 Months. 1 Each 07/05/20 24 Active Senna 8.6 mg tablet TAKE 1 TABSULE BY MOUTH ONCE DAILY NEEDED FOR CONSTIPATION 07/08/20 24 Active fluticasone fur-umeclidinium- vilanterol (Trelegy Ellipta) 100-62.5-25 mcg inhalerIndication s:Moderate persistent asthma without complication Inhale 1 Puff by mouth once daily. 3 Each 08/30/19 25 Active fluticasone fur-umeclidinium- vilanterol (Trelegy Ellipta) 100-62.5-25 mcg inhalerIndication s:Moderate persistent asthma without complication Inhale 1 Puff by mouth once daily. 3 Each 9 10/08/19 025 Discontin ued(Reord er (E-cancel not sent)) Active Problems Problem Noted Date Diagnosed Date Chronic pain 06/15/2024 Pap smear for cervical cancer screening 10/01/19 Overview (09/30/2022): 08/2022 NIL/HPV Negative Plan: Routine Screening Mixed conductive and sensori neural hearing loss of both ears 03/11/2022 Hypercoagulopathy 08/13/2021 ILD (interstitial lung disease) 08/13/2021 Chronic obstructive pulmonar y disease, unspecified COPD type 08/13/2021 Chronic respiratory failure with hypoxia 019 ACP (advance care planning) 04/11/2013 Overview (04/29/2013): Patient has identified Health Care Agent(s): Yes [...] not desire use of life prolonging treatments. Assessment & Plan (04/30/2013 4:01 PM CDT): Advance Care Planning: Disease-specific Session Natalya Lynne is a [facility] patient. Her primary handyman is Dr. Jesus Alarcon. Advance care planning discussions were completed with Natalya and her healthcare agent/friend, Andreea Alvarez and friend, [place] [facility] 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 If I have a stroke, the [...] efforts. They aren't putting in me the [facility]. HIGH SURVIVAL; LOW COGNITIVE STATUS: If Natalya [...] discussions with her Designated Health Care Agent: handyman, other specialty provider, especially transplant team, other [...] advance care planning session: Upcoming assessment at [place] for liver transplant option. Questions identified for [...] nursing and rehabilitation services with eligibility, senior [facility] services and future hospice care services. Informed [...] e d to her primary provider. Interviewer: Jadeil Palacio [facility] José Advance Care Planning Supervisor Quality Control [phone] 04/29/2013 Chronic anticoagulation 12/20/2012 Menorrhagia 01/26/2012 Asthma 01/21/2012 Overview (01/21/2012): Diagnosed in childhood. On inhaled steroids; followed by [facility]; please see scanned report 01/05/12. 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 PATENT DUCTUS ARTERIOSUS B. EISENMENGER'S SYNDROME POLYCYTHEMIA 12/20/2011 Routine gynecological examination 12/20/2011 Encounters Date Type Department Care Team Description 08/30/2024 10:00 AM ENGINE SETTER Office Visit [facility] [address] [place] [address] Martin Lockwood DO Follow Up (2 yr COPD/asthma) 08/30/2024 Travel 08/23/2024 Telephone [facility] [address] [place] [phone] Christopher Mayo MD Questions 07/26/2024 4:30 PM ENGINE SETTER Office Visit [facility] [address] [place] [address] Wilfredo Gutierrez MD CV Pulm Htn Est (PULMONARY HYPERTENTION PAST DUE FOLLOW UP /LABS PRIOR /I27.0 (ICD-10-CM) - Primary pulmonary hypertension (HC) /R06.02 (ICD-10-CM) - SOB (shortness of breath) //PCP: Carlos A Barajas DO/) 07/26/2024 3:30 PM ENGINE SETTER Orders Only [facility] [address] [place] [address] Lab 07/26/2024 Travel 07/19/2024 Telephone [facility] [address] [place] [address] Wilfredo Gutierrez MD Prior Authorization (PH Medication Update ) 07/17/2024 Orders Only [facility] [address] [place] [address] Wilfredo Gutierrez MD <No scans attached> 07/16/2024 11:30 AM ENGINE SETTER Office Visit [facility] [address] [place] [phone] Christopher Mayo MD Follow Up (Workers comp. DOI 06/14/24, Rt) lower leg , Hematoma) 07/16/2024 Travel 06/29/2024 Telephone [facility] [address] [place] [address] Christopher Mayo MD Failed Appointment (AV 1st missed appt) 06/20/2024 Refill [facility] [address] [place] [address] Martin Lockwood, Refill Request (oxygen rx) 06/15/2024 9:55 AM ENGINE SETTER Ancillary Procedure [facility] [address] [place] [address] 06/15/2024 9:05 AM ENGINE SETTER Office Visit [facility] [id number] [place] [phone] Harper Chu, MANAGER PRESENTATION Leg Injury 06/15/2024 Travel from Last 3 Months Immunizations Name Administration Dates Next Due Tdap 01/17/2012 Family History Medical History Relation Name Comments Thyroid Disease Brother 1 Psychiatric illness Brother 2 Anxiety Heart Disease Father Cancer-breast Maternal Aunt 1 late 50's Cancer-breast Maternal Aunt 2 late 50's Cancer-colon Maternal Aunt 3 unknown age Stroke Maternal Grandfather unclear if maternal or paternal Diabetes Maternal Grandmother Arthritis Mother Cancer-breast Mother late 50's Psychiatric illness Mother Depressi on Cancer-breast Paternal Aunt late 50's Heart Disease Paternal Grandfather Cancer No Family History Cancer-prostate No Family History Relation Name Status Comments Brother 1 Brother 2 Father (Age 32) 'heart att ack' Maternal Aunt 1 Maternal Aunt 2 Maternal Aunt 3 Maternal Grandfather Maternal Grandmother Mother (Age 71) breast can cer with met Paternal Aunt Paternal Grandfather Social History Tobacco Use Types Packs/Day Years Used Date Smoking Tobacco: Former Cigarettes 0.5 10 0 07/11/1978 - 07/11/1988 Passive Smoke Exposure: Past Smokeless Tobacco: Never Tobacco Cessation:Counseling Given: Not Answered Comments:Smoking History Packs/day: < 1 ppd Quit smokin Alcohol Use Standard Drinks/Week Comments Yes 2 (1 standard drink = 0.6 oz pur e alcohol) 1-2x per month PHQ-2 Answer Date Recorded PHQ-2 TOTAL SCORE 4 02/16/2024 Social Connections Answer Date Recorded Do you often feel lonely or isolated from those around you? 0 06/15/2024 Financial Resource Strain Answer Date R ecorded Difficulty of Paying Living Expenses 2 06/15/2024 Difficulty of Paying Living Expenses 1 06/15/2024 Food Insecurity Answer Date Recorded Do you worry your food will run out before you are able to buy more? 1 06/15/2024 Transportation Needs Answer Date Record ed Does lack of transportation keep you from medica l appointments? 1 06/15/2024 Does lack of transportation keep you from work, meetings or getting things that you need? 1 06/15/2024 Housing Stability Answer Date Recorded What is your housing situation today? 1 06/15/2024 Utilities Answer Date Recorded Do you have trouble paying f or utilities (for example, heat, electricity, water, phone)? 1 06/15/2024 Comments No Sex and Gender Information Value Date Recorded Sex Assigned at Not on file Legal Sex Female 5:18 AM ENGINE SETTER Gender Identity Not on file Sexual Orientation Not on file Occupation Industry Job Start Date Job End Date disabled. Not on file Not on file Not on file Obstetrics History Para Term AB IAB SAB Ectopic Multiple Livin g Live Births 2 2 2 0 Date Outcome GA Total Labor Labor/2nd/3rd Weight Sex Type Anes PTL Lesia A1 A5 Name Clin SAB SAB Last Filed Vital Signs Vital Sign Reading Time Taken Comments Blood Pressure 110/62 08/30/2024 10:08 AM ENGINE SETTER Pulse 83 08/30/2024 10:08 AM ENGINE SETTER Temperature 36.5 C (97.7 F) 06/15/2024 9:12 AM ENGINE SETTER Respiratory Rate 16 08/30/2024 10:08 AM ENGINE SETTER Oxygen Saturation 89% 08/30/2024 10:08 AM ENGINE SETTER Inhaled Oxygen Concentration - - Weight 47.6 kg (105 lb) 08/30/2024 10:08 AM ENGINE SETTER Height 152.4 cm (5') 08/30/2024 10:08 AM ENGINE SETTER Body Mass Index 20.51 08/30/2024 10:08 AM ENGINE SETTER Plan of Treatment Health Maintenance Due Date Last Done Comments HIV for age 15-65 02/15/1976 Pneumococcal series for age 50+ (1 of 2 - PCV) 02/15/1980 Zoster (shingles) series for age 50+ (1 of 2) 2011 Mammogram for age 45-75 04/06/2020 04/06/20 19, 04/07/2011, 02/20/2010, Additional history exists RSV vaccine for adults or (1 - Risk 60-74 years 1-dose series) 2021 Tetanus booster 01/16/2022 01/17/2012 COVID-19 vaccine series ( season) 2024 Influenza for age 50-64 03/11/2024 Lipids for age 45-75 04/02/2024 04/02/2019, 11/07/2015, 05/10/2006 Depression screening for age 12+ 02/15/2025 02/16/2024, 04/28/2023, 04/26/2023, Additional history exists BMI (ht and wt on same day) for age 18+ 08/30/2025 08/30/2024, 07/26/2024, 07/16/2024, Additional history exists Colonoscopy through age 75 09/23/2026 09/23/2016 Pap test for age 21-65 09/10/2027 , 09/09/2022, 04/02/2019, Additional history exists Tdap Completed 01/17/2012 Hepatitis C screening for ag e 18-79 Completed 04/02/2019 Medical Devices Implanted Type Area House Detective Device Identifier Shelf Expiration Date Model / Serial / Lot Cochlear Osia [id number] Bone Conduction Hearing Implant Implanted:Qty: 1 on 03/12/2022 by Federico Wiggins MD at [facility] Left: Ear Cochlear [employer] - [employer] 08/27/2023 [id number] / [id number] / Description:BEHIND EAR LEFT SIDE Screw Cochlear 4mm Baha [id number] [facility] - [id number] Implanted:Qty: 1 on 03/12/2022 by Federico Wiggins MD at [facility] Left: Ear Cochlear [employer] 12/30/2026 [id number] / / [id number] Procedures Procedure Name Priority Date/Time Associated Diagnosis Comments RED CELL MORPHOLOGY Routine 07/26/2024 2 :52 PM ENGINE SETTER Primary pulmonary hypertension (HC) SOB (shortness of breath) HEPATIC FUNCTION PANEL Routine 07/26/2024 2:52 PM ENGINE SETTER Primary pulmonary hypertension (HC) SOB (shortness of breath) CBC W PLT NO DIFF Routine 07/26/2024 2:5 2 PM ENGINE SETTER Primary pulmonary hypertension (HC) SOB (shortness of breath) PRO-BNP Routine 07/26/2024 2:52 PM ENGINE SETTER Primary pulmonary hypertension (HC) SOB (shortness of breath) BASIC METABOLIC PANEL Routine 07/26/2024 2:52 PM ENGINE SETTER Primary pulmonary hypertension (HC) SOB (shortness of breath) XR TIBIA AND FIBULA 2 VIEWS RIGHT STAT 06/15/2024 9:56 AM ENGINE SETTER Injury of right lower extremity, initial encounter HPV HIGH RISK Routine 09/09/2022 11:09 AM ENGINE SETTER Screening for malignant neoplasm of the cervix XR MAMMO BILAT SCREENING Routine 04/06/2019 11:50 AM CDT Screening for breast cancer ANTI HCV Routine 04/02/2019 12:46 PM CDT Need for hepatitis C screening test LIPID PANEL W REFLEX MEASURED LDL Routine 04/02/2019 12:46 PM CDT Lipid screening SCAN-COLONOSCOPY 09/23/2016 1:00 PM CDT from Last 3 Months or Most Recently Relevant to Health Maintenance Results * (ABNORMAL) RED CELL MORPHOLOGY (07/26/2024 2:52 PM ENGINE SETTER) POLYCHROMASIA Slight 07/26/2024 3:32 PM ENGINE SETTER [facility] RBC COMMENT Present(A) RBC morphology appears normal, RBC morphology within normal limits for newborns. 07/26/2024 3:32 PM ENGINE SETTER [facility] Blood BLOOD SPECIMEN / Unknown Non-Lab Venipuncture / Unknown 07/26/2024 2:52 PM ENGINE SETTER 07/26/2024 2:58 PM ENGINE SETTER us Wilfredo Gutierrez MD HEMATOLOGY Final Res ult [facility] [address] [place] [address], [place] * (ABNORMAL) CBC W PLT NO DIFF (07/26/2024 2:52 PM ENGINE SETTER) Pathologist [facility] WHITE BLOOD COUNT 7.6 4.5 - 11.0 thou/cu mm 07/26/2024 3:32 PM ENGINE SETTER [facility] RED BLOOD COUNT 7.18(H) 4.00 - 5.20 mil/cu mm 07/26/2024 3:32 PM ENGINE SETTER [facility] HEMOGLOBIN 17.5(H) 12.0 - 16.0 g/dL 07/26/2024 3:32 PM ENGINE SETTER [facility] HEMATOCRIT 60.3(H) 33.0 - 51.0 % 07/26/2024 3:32 PM ENGINE SETTER [facility] MCV 84 80 - 100 fL 07/26/2024 3:32 PM ENGINE SETTER [facility] MCH 24.4(L) 26.0 - 34.0 pg 07/26/2024 3:32 PM ENGINE SETTER [facility] MCHC 29.0(L) 32.0 - 36.0 g/dL 07/26/2024 3:32 PM ENGINE SETTER [facility] RDW 19.5(H) 11.5 - 15.5 % 07/26/2024 3:32 PM ENGINE SETTER [facility] PLATELET COUNT 217 140 - 440 thou/cu mm 07/26/2024 3:32 PM ENGINE SETTER [facility] MPV 11.0 6.5 - 11.0 fL 07/26/2024 3:32 PM ENGINE SETTER [facility] NRBC 0.0 % 07/26/2024 3:32 PM ENGINE SETTER [facility] ABS NRBC 0.0 thou /cu mm 07/26/2024 3:32 PM ENGINE SETTER [facility] [employer] Blood BLOOD SPECIMEN / Unknown Non-Lab Venipuncture / Unknown 07/26/2024 2:52 PM ENGINE SETTER 07/26/2024 2:58 PM ENGINE SETTER us Wilfredo Gutierrez MD HEMATOLOGY Final Res ult Performing Organization Address City/[facility]/ZIP Co de Phone Number [facility] [address] [place] [address], [place] * (ABNORMAL) PRO-BNP (07/26/2024 2:52 PM ENGINE SETTER) PRO-BNP 246(H) <125 pg/mL 07/26/2024 3:44 PM ENGINE SETTER [facility] Blood BLOOD SPECIMEN / Unknown Non-Lab Venipuncture / Unknown 07/26/2024 2:52 PM ENGINE SETTER 07/26/2024 2:58 PM ENGINE SETTER Narrative [facility] - 07/26/2024 3:44 PM ENGINE SETTER The following cut-points have been suggested for the use of proBNP for the diagnostic evaluation of heart failure (HF) in patient with acute dyspnea. Patients with eGFR >= 60 Diagnosis (rule in CHF) <50 Years Old 450 pg/mL 50 - 75 Years Old 900 pg/mL >75 Years Old 1800 pg/mL Exclusion (rule out CHF) Age Independent 300 pg/mL A cutoff of 1200 pg/mL for patients with an eGFR <60 yields a diagnostic sensitivity of 89% and specificity of 72% for acute congestive heart failure. us Wilfredo Gutierrez MD SEND OUTS Final Res ult [facility] [address] [place] [address], [place] * (ABNORMAL) HEPATIC FUNCTION PANEL (07/26/2024 2:52 PM ENGINE SETTER) ALBUMIN 3.6(L) 4.0 - 4.9 g/dL 07/26/2024 3:44 PM ENGINE SETTER [facility] PROTEIN,TOTAL 6.5 6.0 - 8.0 g/dL 07/26/2024 3:44 PM ENGINE SETTER [facility] BILIRUBIN,TOTAL 0.5 0.0 - 1.2 mg/dL 07/26/2024 3:44 PM ENGINE SETTER [facility] BILIRUBIN,DIRECT 0.1 0.0 - 0.2 mg/dL 07/26/2024 3:44 PM ENGINE SETTER [facility] ALK PHOSPHATASE 86 35 - 104 IU/L 07/26/2024 3:44 PM ENGINE SETTER [facility] ALT (SGPT) <5(L) 10 - 35 IU/L 07/26/2024 3:44 PM ENGINE SETTER [facility] AST (SGOT) 24 10 - 35 IU/L 07/26/2024 3:44 PM ENGINE SETTER [facility] Blood BLOOD SPECIMEN / Unknown Non-Lab Venipuncture / Unknown 07/26/2024 2:52 PM ENGINE SETTER 07/26/2024 2:58 PM ENGINE SETTER us Wilfredo Gutierrez MD CHEMISTRY Final Res ult [facility] [address], [place] [address], [place] * (ABNORMAL) BASIC METABOLIC PANEL (07/26/2024 2:52 PM ENGINE SETTER) Pathologist [facility] SODIUM 138 136 - 145 mmol/L 07/26/2024 3:37 PM ENGINE SETTER [facility] POTASSIUM 4.6 3.5 - 5.1 mmol/L 07/26/2024 3:37 PM ENGINE SETTER [facility] CHLORIDE 103 98 - 107 mmol/L 07/26/2024 3:37 PM [facility] CO2,TOTAL 23 22 - 29 mmol/L 07/26/2024 3:37 PM ENGINE SETTER [facility] ANION GAP 12 5 - 18 07/26/2024 3:37 PM [facility] GLUCOSE 131(H) 70 - 99 mg/dL 07/26/2024 3:37 PM [facility] CALCIUM 9.6 8.8 - 10.4 mg/dL 07/26/2024 3:37 PM [facility] Comment: Reference ranges for this test were updated on 05/15/2024 to reflect our healthy population more accurately. Reference range changes are not retroactively applied to results, but previous results using the same methodology can be interpreted in the context of the new reference range. BUN 11 8 - 23 mg/dL 07/26/2024 3:37 PM [facility] CREATININE 1.05(H) 0.50 - 0.90 mg/dL 07/26/2024 3:37 PM [facility] BUN/CREAT RATIO 10 10 - 20 3:37 PM [facility] eGFR 60(L) >90 mL/min/1. 73m2 07/26/2024 3:37 PM [facility] Comment:As of 2021, eG FR is calculated by the CKD-EPI creatinine equation without race adjustment. eGFR can be influenced by muscle mass, exercise, and diet. The reported eGFR is an estimation only and is only applicable if the renal function is stable. Blood BLOOD SPECIMEN / Unknown Non-Lab Venipuncture / Unknown 07/26/2024 2:52 PM ENGINE SETTER 07/26/2024 2:58 PM ENGINE SETTER us Wilfredo Gutierrez MD CHEMISTRY Final Res ult [facility] [address] [place] [address], [place] * XR TIBIA AND FIBULA 2 VIEWS RIGHT (06/15/2024 9:56 AM ENGINE SETTER) Anatomical Region Laterality Modality Tibia Computed Radiogr aphy 06/15/2024 9:56 AM ENGINE SETTER Impressions 06/15/2024 10:27 AM ENGINE SETTER No evidence of a fracture. There is localized soft tissue edema along the medial aspects of the proximal two-thirds of the calf. Within these changes, there is a small soft tissue density in medial subcutaneous tissues of the distal calf, likely a hematoma. Narrative 06/15/2024 10:27 AM ENGINE SETTER For Patients: As a result of the Cures Act, medical imaging exams and procedure reports are released immediately into your electronic medical record. You may view this report before your referring provider. If you have questions, please contact your health care provider. EXAM: XR TIBIA AND FIBULA 2 VIEWS RIGHT LOCATION: [facility] DATE: 06/15/2024 INDICATION: Injury of right lower extremity, initial encounter. COMPARISON: None. Procedure Note Mendoza Maurice MD - 06/15/2024 For Patients: As a result of the Cures Act, medical imagingexams and procedure reports are released immediately into your electronicmedical record. You may view this report before your referring provider.If you have questions, please contact your health care provider. EXAM: XR TIBIA AND FIBULA 2 VIEWS RIGHT LOCATION: [facility] DATE: 06/15/2024 INDICATION: Injury of right lower extremity, initial encounter. COMPARISON: None. IMPRESSION: No evidence of a fracture. There is localized soft tissue edema along themedial aspects of the proximal two-thirds of the calf. Within thesechanges, there is a small soft tissue density in medial subcutaneoustissues of the distal calf, likely a hematoma. us Harper Chu NP GENERAL IMAGING Final Resul t * HPV HIGH RISK (09/09/2022 11:09 AM ENGINE SETTER) TYPE 16 Negative Negative 09/14/2022 5:17 AM ENGINE SETTER [facility] TYPE 18 Negative Negative 09/14/2022 5:17 AM ENGINE SETTER [facility] [employer] OTHER HIGH RISK TYPES Negative Negative 09/14/2022 5:17 AM ENGINE SETTER [facility] Other (Cervical) Non-Blood / Unknown 09/09/2022 11:09 AM ENGINE SETTER 09/10/2022 10:38 AM ENGINE SETTER Narrative [facility] - 09/14/2022 5:17 AM ENGINE SETTER HPV types 16, 18, 31, 33, 35, 39, 45, 51, 52, 56, 58, 59, 66 and 68 DNA were undetectable or below the pre-set threshold. Methodology: Curtis Jani 4800 HPV Test Alexandr Headley MD MICROBIOLOG Y Final Result [facility] [address] [place] [address], [place] * XR MAMMO BILAT SCREENING (04/06/2019 11:50 AM CDT) Anatomical Region Laterality Modality BREASTS, Breast Left, Breast Right Bilateral Other 04/06/2019 11:5 0 AM CDT Impressions 04/06/2019 3:00 PM CDT IMPRESSION: BI-RADS CATEGORY: 1 - NEGATIVE. RECOMMENDED FOLLOW-UP: Annual Mammography. Exam results letter mailed to patient. Narrative 04/06/2019 3:00 PM CDT SCREENING MAMMOGRAM, BILATERAL, DIGITAL with DIGITAL BREAST TOMOSYNTHESIS, w/CAD - 04/06/2019 11:50 AM. COMPARISON: [facility] 04/07/11 CLINICAL HISTORY: No current breast concerns. Paternal aunt, mother and maternal aunt with breast cancer. BREAST DENSITY: Heterogeneously dense. FINDINGS: No concerning findings. Procedure Note Willie Sargent MD - 04/06/2019 SCREENING MAMMOGRAM, BILATERAL, DIGITAL with DIGITAL BREAST TOMOSYNTHESIS, w/CAD - 04/06/2019 11:50 AM. COMPARISON: [facility] 04/07/11 CLINICAL HISTORY: No current breast concerns. Paternal aunt, mother and maternal aunt with breast cancer. BREAST DENSITY: Heterogeneously dense. FINDINGS: No concerning findings. IMPRESSION: IMPRESSION: BI-RADS CATEGORY: 1 - NEGATIVE. RECOMMENDED FOLLOW-UP: Annual Mammography. Exam results letter mailed to patient. Carlos A Barajas DO MAMMO Final Res ult * (ABNORMAL) LIPID PANEL W REFLEX MEASURED LDL (04/02/2019 12:46 PM CDT) CHOLESTEROL,TOTAL 187 100 - 199 mg/dL 04/02/2019 7:54 PM CDT [facility] TRIGLYCERIDES 113 <150 mg/dL 04/02/2019 7:54 PM CDT [facility] HDL CHOLESTEROL 40(L) >40 mg/dL 9 7:54 PM CDT [facility] NON-HDL CHOLESTEROL 147(H) <145 mg/dl 04/02/2019 7:54 PM CDT [facility] CHOL/HDL RATIO 4.68(H) <4.50 04/02/2019 7:54 PM CDT [facility] LDL CHOLESTEROL 124 <=130 mg/dL 04/02/2019 7:54 PM CDT [facility] PROVIDER ORDERED STATUS RANDOM 04/02/2019 7:54 PM CDT [facility] Blood BLOOD SPECIMEN / Unknown Butterfly / Unknown 04/02/2019 12:46 PM CDT 04/02/2019 12:46 PM CDT us Carlos A Barajas DO CHEMISTRY Final Res ult [facility] [address] [place] [address], * ANTI HCV (04/02/2019 12:46 PM CDT) HEPATITIS C ANTIBODY Non-React casper Non-React casper 04/02/2019 8:01 PM CDT [facility] Comment:Antibodies to HCV no t detected; does not exclude the possibility of exposure to HCV. Blood BLOOD SPECIMEN / Unknown Butterfly / Unknown 04/02/2019 12:46 PM CDT 04/02/2019 12:46 PM CDT us Carlos A Barajas DO SEND OUTS Final Res ult [facility] [address] [place] [address], [place] * SCAN-COLONOSCOPY (09/23/2016 1:00 PM CDT) Narrative Procedure Note Dimitris Umaña MD - 09/23/2016 11:52 AM CDT [facility] [address], [address], [place] [address] Patient Name: Natalya Lynne Gender: Female Exam Date: 09/23/2016 Visit Number: [id number] Age: 56 Years Date of : 1960 Attending MD: Dimitris Umaña MD Medical Record#: [id number] ----- Procedure: Colonoscopy Indications: Colorectal cancer screening Change in bowel habits Referring MD: Referral Self Primary MD: Santosh Britton MD Medications: Complications: Procedure: An examination of the heart and lungs was performed and found to be withinacceptable limits. The patient was therefore deemed a reasonablecandidate for endoscopy and 0 sedation. The risks and benefits of the procedure were explained to the patient.After obtaining informed consent, the patient received monitoredanesthesia care and I passed the scope without difficulty via the rectum to the cecum. The appendiceal orificeand ic valve were identified. The scope was retroflexed during theexamination The quality of the prep was good (Miralax/Gatorade/2 tabletsBisacodyl/Magnesium Citrate). This was a complete examination throughout the entire colon. Findings: Polyp location: ascending colon. Quantity: 1. Size: 7 mm. Polyp shape:sessile. Maneuver: polypectomy was performed with a hot snare and hemoclip. Removal: complete. Retrieval: complete. Bleeding: none. Hemorrhoids. Internal hemorrhoids without bleeding. Remainder of the exam is normal. Impression: Polyp of ascending colon, unspecified type Internal hemorrhoids without complication Pathology Results: A: COLON, ASCENDING, POLYP: 1. Tubular adenoma 2. No evidence of high grade dysplasia 3. Per the attached endoscopy report: a. Polyp size: 7mm b. Resection: Complete c. Retrieval: Complete MICROSCOPIC A: Performed Electronically signed by: Shayan Arce MD Final Plan: Return for a colonoscopy in 5 years. We will attempt to contact you at appropriate intervals via U.S. mail. Wemay not be able to find you or contact you at that time, therefore youshould know that the responsibility for following our recommendation restswith you. If you don't hear from us at the time your procedure is due,please contact our office to schedule an appointment. If your contactinformation should change, please contact our office so that we can updateyour record. Plan Comments: Recommendation Comments: Given ASA classification (IV), suggest futureprocedures be done as outpatient at hospital. _Electronically signed by: Dimitris Umaña MD 09/23/2016 cc: Referral Self Santosh Britton MD Dimitris Umaña MD OTHER Final Resu lt from Last 3 Months or Most Recently Relevant to Health Maintenance Insurance HC MEDICARE PPS [facility] MR/MSHO MEDICARE PART A HB ONLY [facility] Member Subscriber Plan / Payer (Ef fective 2022-Present) Name:Natalya Lynne Relation to Subscriber:Employee Name:[employer] Date of :1999 (Home) Address: [address] [place] [id number] Payer ID:Not on file Group ID:Not on file Type:Not on file Address: [address] MR/MSHO Advance Directives Documents on File Type Date Recorded 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 Expl 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 Treatment Guidelines 05/16/2013 12:22 PM R ESUSCITATION GUIDELINES Healthcare Directive 05/01/2013 1:47 PM H CD Treatment Guidelines 05/01/2013 1:47 PM S TP GENERAL * DNR (Latest Code Status on File) Date Activated Date Inactivated Comments 02/27/2019 3:28 AM 02/27/2019 7:07 PM DNR/DNI Question Answer Comments Code Status Discussion: Discussed * Full Code Date Activated Date Inactivated Comments 02/27/2019 3:23 AM 02/27/2019 3:28 AM * Full Code Date Activated Date Inactivated Comments 11/01/2015 3:15 PM 11/01/2015 7:28 PM * DNR Date Activated Date Inactivated Comments 10/31/2015 2:53 PM 11/01/2015 3:15 PM Question Answer Comments Code Status Discussion: Per Advance Care Plan * Full Code Date Activated Date Inactivated Comments 10/31/2015 2:33 PM 10/31/2015 2:53 PM Question Answer Comments Code Status Discussion: Per Existing Order Care Teams Environmental Designer Relationship Specialty [place] [address] [place] [address] PCP - General Family Practice 08/21/18 Coordinators, Pulmonary Htn 10/28/15
--- OUTSIDE RECORDS SUMMARY | 2024-09-05 16:15 | XMS_ITS | Data Portability ---
Author Organization [facility], [facility] - [facility] Address [address] [place] [address] Assessment Encounter Date Assessment Date Assessment LastModified by Organization Details LastModified Time 03/04/2021 03/04/2021 Chronic right side back pain. I will order a lumbar MRI and an entire bone scan for further investigation. Not available 03/04/2021 15:56:42 03/18/2021 03/18/2021 Chronic back pain Thoracic MR in [facility] 2020: no pathologies noted Lumbar MR in [facility]: no pathologies noted Bone scan is negative I would recommend that patient wears brace that she already owns and F/u in six weeks. Not available 03/18/2021 16:09:03 08/24/2021 08/24/2021 right rib pain into shoulder/neck area [email or web address] Not available 08/24/2021 15:08:01 Plan of Treatment Reminders Order Date Submit Date Provider Last Modified By Organization Details Last Modified Time Details Appointments None record ed. Lab None record ed. Referral None record ed. Procedures None record ed. Surgeries None record ed. Imaging None record ed. Medication Orders None record ed. Patient TargetsNo targets recorded. Patient Instructions Encounter Date Encounter Id Patient Instructions Last Modified By Organization Details Last Modified Time 03/04/2021 [id number] I discussed with the patient the clinical findings and reviewed the findings together. I will order a lumbar MRI and an entire body bone scan from [facility] for further investigation and follow up. Today I and my immediate clinical team spent __45 minutes preparing to see the patient, performing a physical exam, going over test results and educating and counseling patients, updating their history, placing orders, and documenting [place] in [place] [id number] Not available 03/04/2021 20:50:08 03/18/2021 [id number] I discussed with the patient the clinical findings and reviewed the findings together. I would recommend that patient wears brace that she already owns and F/u in six weeks. Reassurance was given as the bone scan and MRI scan of lumba spine are negative. [email or web address] Not available 03/18/2021 16:20:30 08/24/2021 [id number] Collected a history, performed a physical exam, and discussed clinical findings with the patient. Patient educated on seeing PCP or going into to further cares and to have xray of ribs. Educated on conservative management with rest, activity modification, and OTC medications. All questions answered. 08/24/21 AGUILAR MAKAYLA: no issues. right rib pain. Patient to see PCP or go to . [email or web address] Not available 08/24/2021 15:09:08 Reason for Referral None Reported. Results Created Date Observation Date Name Description Value Unit Range Abnormal Flag Note LastModifiedBy Organization Detail LastModifiedTime 03/17/2003/17/2021 NM, whole body scan No observ ation record ed. [email or web address] Not Available 2020 12:16:53 03/17/20 21 03/17/2021 MRI, lumba r spine , w/o contr ast No observ ation record ed. [email or web address] Not Available 2020 12:16:54 Result Notes None recorded. Problems Name Problem SNOMED Code Status Onset Date Resolution Date Notes Provider Name and Address Organization Details Recorded Time Asthma 418762852 Active 022 [place], [place] - [facility] 14:26:05 Neck pain 81414584 Active 022 Eveliacindi [place], [place] - [facility] 14:29:50 Problem Notes None recorded. Procedures Surgical History None recorded. Imaging Results Imaging Date Name Status LastModified by Organiz ation Details LastModified Time 03/17/2021 NM, whole body scan completed Information not available 03/18/2021 12:16:53 03/17/2021 MRI, lumbar spine, w/o contrast completed Information not available 03/18/2021 12:16:54 Procedure Notes None recorded. Medical Equipment None Reported. Allergies Allergen ID Allergen Name Allergen Category Reaction Reaction Severity Criticality Documentation Date Start Date Code Code System Note Provider Name and Address Organization Details Recorded Time 4861 Substance with sulfonami de structure and antibacte rial mechanism of action (substanc e) medicatio n Not available Not available Not available 03/04/2021 04564 8003 SNOMED Not Available Not Available Not Available 486 oxycodone medicatio n Not available Not available Not available 03/04/2021 7804 RxNorm Not Available Not Available Not Available Medications Name Sig Start Date Stop Date Status Note LastModified by Organization Details LastModified Time cyclobenzap rine 10 mg tablet 08/24 completed Not Available Not Available Not Available latanoprost 0.005 % eye drops PLACE 1 GTT INTO OU D 08/24 completed Not Available Not Available Not Available prednisone 20 mg tablet 08/24 completed Not Available Not Available Not Available tramadol 50 mg tablet TAKE 1 TABLET BY MOUTH TWICE DAILY FOR 15 DAYS NEEDED active Not Available Not Available No t Available triamcinolo ne acetonide 0.1 % topical cream APPLY TOPICALLY TO THE AFFECTED AREA THREE TIMES DAILY active Not Available Not Available No t Available methocarbam ol 750 mg tablet 08/24 completed Not Available Not Available Not Available ciprofloxac in 0.3 % eye drops INSTILL 1 TO 2 DROPS INTO BOTH EYES Q 4 HOURS X 7 DAYS 08/24 completed Not Available Not Available Not Available baclofen 10 mg tablet TAKE 1 TO 2 TABLETS BY MOUTH IN THE EVENING NEEDED FOR MUSCLE SPASMS 08/24 completed Not Available Not Available Not Available mupirocin 2 % topical ointment APPLY TOPICALLY TO THE AFFECTED AREA THREE TIMES DAILY FOR 10 DAYS active Not Available Not Available No t Available lorazepam 1 mg tablet TAKE 2 TABLET BY MOUTH FOR ONE DOSE active Not Available Not Available No t Available albuterol sulfate HFA 90 mcg/actuati on aerosol inhaler INHALE 2 PUFFS BY MOUTH EVERY 4 HOURS NEEDED active Not Available Not Available No t Available Revatio 20 mg tablet active Not Available Not Available No t Available Combigan 0.2 %-0.5 % eye drops INSTILL 1 DROP INTO BOTH EYES BID 08/24 completed Not Available Not Available Not Available Xarelto 20 mg tablet TAKE 1 TABLET BY MOUTH EVERY DAY WITH THE EVENING MEAL active Not Available Not Available No t Available Opsumit 10 mg tablet active Not Available Not Available No t Available Treleoneal Ellipta 100 mcg-62.5 mcg-25 mcg powder for inhalation INHALE 1 PUFF BY MOUTH EVERY DAY active Not Available Not Available No t Available Vitals Date Recorded Body height Body mass index (BMI) Body weight Respiratory rate Body temperature Heart rate Oxygen saturation Oxygen saturation in Arterial blood by Pulse oximetry Systolic blood pressure Diastolic blood pressure Provider Name and Address Organization Details Last Updated DateTime 1 154.94 cm 22.7 kg/m2 12929.0 8 g 18 /min 97.4 [degF] 71 /min 90 % 90 % 96 mm[Hg] 66 mm[Hg] Parris Guzman [employer] [facility] 1 15:16:00 Date Recorded Body height Respiratory rate Body temperature Heart rate Oxygen saturation Oxygen saturation in Arterial blood by Pulse oximetry Systolic blood pressure Diastolic blood pressure Provider Name and Address Organization Details Last Updated DateTime 1 154.94 cm 18 /min 97.8 [degF] 67 /min 67 % 67 % 123 mm[Hg] 77 mm[Hg] Parris Guzman [place] [employer] [facility] 1 15:47:26 Date Recorded Body height Body mass index (BMI) Body weight Respiratory rate Heart rate Oxygen saturation Oxygen saturation in Arterial blood by Pulse oximetry Systolic blood pressure Diastolic blood pressure Provider Name and Address Organization Details Last Updated DateTime 2 154.94 cm 24.2 kg/m2 12510.8 2 g 20 /min 73 /min 87 % 87 % 136 mm[Hg] 83 mm[Hg] [employer] Mat [place] [employer] [facility] 2 14:32:18 Social History Question Answer Notes LastModified by Organizat ion Details LastModified Time Tobacco Smoking Status Never Smoker Parris malone [place] [employer] [facility] 03/04/2021 15:09:36 What Is Your Level Of Alcohol Consumption? Occasional Information not available 08/24/2021 How Many Times Per Week Do You Consume Alcohol? 1-2 Times Per Week Information not available 08/24/2021 What Was The Date Of Your Most Recent Tobacco Screening? 08/24/2021 megan Information not available 08/24/2021 Sex: Unknown Functional Status None recorded. Mental Status None recorded. Family History Relationship Description Onset Age of this Age Resolved Age Notes LastModified by Organization Details LastModified Time Mother Family history of malignant neoplasm [email or web address] Not available 02/09 15:08:57 Father Family history of heart failure [email or web address] Not available 02/09 15:09:12 Medical History Condition Response Gout N Blood Diseases N MRSA N Blood Transfusion N Hernia N Head Trauma/Injury N Lung Disease Y Depression N COPD Y Developmental or Behavioral Disorders N Pacemaker N Difficulty Swallowing N Anesthesia Complications N Cystic Fibrosis N Anxiety Disorder N Muscle, Joint, or Bone Problems N Obesity N Vision or Eye Problems N Arthritis N Blood Clot N Stroke N Bladder or Kidney Problems N High Cholesterol N Headaches Y Fibromyalgia N Allergies/Hayfever N Parkinson's Disease N Ear or Hearing Problems Y Hospitalizations N GI Problems N ADD/ADHD N Skin Problems N Anemia N PTSD N Multiple Sclerosis N Meningitis N Heart Attack ([place]) N Diabetes N Immunocompromised N Hepatitis/Liver Disease N Bleeding Disorder N Cancer/Tumors N Heart Murmur Y Cerebral Palsy N AIDS/HIV N Congestive Heart Failure (CHF) N Abuse/Domestic Violence N Asthma Y Peripheral Vascular Disease N Epilepsy/Seizures N AFib N Seizures N Reflux/GERD N Sleep Apnea N Thyroid Disorder N Aneurysm N Neuropathy N Pulmonary Embolism Y Hypertension Y Autism Spectrum Disorder (ASD) N Osteoporosis N Gynecological HistoryNo gynecological history recorded. Obstetrics History GPAL:G 0 P 0 0 0 0 Past Encounters Encounter ID Performer Location Encounter Start Date Encounter Closed Date Diagnosis/Indication Diagnosis SNOMED-CT Code Diagnosis ICD10 Code Diagnosis Note [id number] Colin Ocampo MD [facility] [address] [place] [address] WILL Rodrigues [id number] 03/04/2021 14:41:13 03/05/2021 14:55:21 [id number] Colin Ocampo MD [facility] [address] [place] [address] WILL Rodrigues [id number] 03/18/2021 15:24:47 03/19/2021 16:52:33 [id number] Rebeca Becerril [facility] [address] [place] [address] WILL Rodrigues [id number] 08/24/2021 13:56:31 08/25/2021 10:34:58 History of fall 482314994 Z91.81 Rib pain 146183023 R07.8 1 Health Concerns Section Related Observation LastModified by Organization Detai ls LastModified Time None Recorded Concern Status LastModified by Organization Details LastModified Time None Recorded Advance Directives Directive None Recorded Payers Encounter Date Sequence Insurance Name Policy Number Policy Rae Covered Member ID Rae Member ID Guarantor Name 03/04/2021 1 [employer] (MEDICARE REPLACEMENT/AD VANTAGE - PPO) [id number] Natalya Hsu Maged [id number] Natalya Maged 03/18/2021 1 [employer] (MEDICARE REPLACEMENT/AD VANTAGE - PPO) [id number] Natalya Hsu Maged [id number] Natalya Maged 08/24/2021 1 [place] [employer] [facility] Natalya Aracelis Lynne [id number] Natalya Maged 08/24/2021 1 [facility] [employer] (MEDICARE SUPPLEMENT) [id number] Natalya Maged [id number] Natalya Maged Notes Date Note Type Note Provider Name and Address Organization Details Recorded Time 03/04/2021 text/html Back PainReporte d [email or web address].Location: thoracic; lumbar Quality:sharp Severity:pain level 5/10 Associated Symptoms:no weak limbs; no numbness of the legs/feet; no tingling Prior Imaging:MRI Today nursing spent 25 minutes preparing to see the patient, obtaining and reviewing patients history, obtaining vital signs, entering medications, tests & procedures, educating the patient, coordinating care, and documenting this visit in [place]. Patient is a 61 yo female and she reports her pain is only on the right side of her back at T2-T12. She states she fell on ice last winter and the pain has gotten progressively worse since this september. She states her pain is aggravated with bending, lifting, twisting and she rates her pain at 5/10 today. Noted that there are unknown lesions in the thoracic spine seen in the thoracic MRI from 2020. She gets some relief from her pain by taking tramadol and using a heating pad. She is currently going to physical therapy and has gone to 8 sessions so far and concludes they do not help with her pain. Patient states she has diabetes and heart disease. Colin Ocampo MD [address], [place], [address], [facility] 03/04/2021 20:50:12 03/18/2021 text/html Back PainReporte d [email or web address].Location: thoracic; lumbar Quality:sharp Severity:pain level 7 5/10 Associated Symptoms:no weak limbs; no numbness of the legs/feet; no tingling Prior Imaging:CT scan; MRI Today nursing spent 25 minutes preparing to see the patient, obtaining and reviewing patients history, obtaining vital signs, entering medications, tests & procedures, educating the patient, coordinating care, and documenting this visit in [place]. Patient is here with results from bone scan. Patient is a 61 yo female and she reports her pain is only on the right side of her back at T2-T12 since September. She states she fell on ice last winter and the pain has gotten progressively worse since this September. Pulsating, sharp pain in back at least once a day usually onset by physical activity. Noted that there are unknown lesions in the thoracic spine seen in the thoracic MRI from 2020. She gets some relief from her pain by taking tramadol and using a heating pad. She is currently going to physical therapy and has gone to 8 sessions so far and concludes they do not help with her pain. Patient has gone to a significant amount of PT which makes pain worse. Patient has received no inj and has not seen a chiropractor. Patient states she has diabetes and heart disease. Colin Ocampo MD [address], [place], [address], [facility] 03/18/2021 16:20:33 08/24/2021 text/html Neck PainReporte d bypatient.Location: bilateral Severity:pain level 5/10; worst pain 10/10; RT Rib Pain with Rt side neck pain Patient is a 61 yr old FM who fell two weeks ago and now is having right armpit to breast pain. Stated when she called to make the appt, was told this is a pain clinic and is wanting pain meds. Stated fell face forward and hurt right breast to armpit area. Pain started after fall in area. Stated has no numbness or tingling going into arms or legs. Stated no weakness. Stated pain doesnt radiate into other area. Stated will hurt in area when takes deep breathes. Stated has no issues or concerns with spine. Stated pain doesnt radiate into back. Stated pain will go into shoulder up into right side of neck. Stated no issues with movement. Stated didnt see PCP or go into Urgent care. WILL [facility] 08/24/2021 15:09:15 OBGyn Episode No OBEpisode recorded.
--- OUTSIDE RECORDS SUMMARY | 2024-09-05 16:15 | XMS_ITS | Encounter Summary ---
Author Organization [facility] Address [facility] [place] [address] Care Team Providers Care Environmental Change Analyst Name Role Phone Lisseth, José [place] Primary Care Provider Carlos A Barajas DO Primary Care Provider [phone] Ruslan Ruiz Chi, OD Unavailable [phone] Roosevelt Cueva MD Unavailable [phone] Reason for Visit * Reason Onset Date Comments Nurse Advice Line 03/16/2013 Encounter Details Date Type Department Care Team (Late st Contact Info) Description 03/16/2013 Telephone [facility]PT FOR [facility] None Nurse Advice Line Social History Tobacco Use Types Packs/Day Years Used Date Smoking Tobacco: Never Assessed Alcohol Use Standard Drinks/Week Comments Yes 0 (1 standard drink = 0.6 oz pur e alcohol) Comments No Sex and Gender Information Value Date Recorded Sex Assigned at Not on file Legal Sex Female 3:05 AM SOCIAL 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 Pt states the longest she hasapplied continous pressure is a couple minutes. Denies trauma/injury or large blood blood loss. Triage Note: Guideline Title: Nosebleed Recommended Disposition: Override Disposition: Provide Home/Self Care Question Response Question Note New or worsening signs and symptoms that may indicate No shock Unconscious now or within last hour OR for more than 5 No minutes at time of injury, after major trauma to head, neck or face Following face injury AND nosebleed is minimal No Lacerations on nose or face No Bleeding not controlled after 2 attempts of constant direct No pressure for a full 10 minutes by the clock (each attempt) Severe headache No Self measured blood pressure 180/110 or higher No Bleeding initially controlled with direct pressure AND No another episode of bleeding the same day Trauma with deformity No Known foreign body in nose No Unexplained new bruising on other parts of body or other No unexplained bleeding (from gums, in urine or stool) Recurrent bleeding (3 or more episodes in last week) that No stops with 10 minutes of direct pressure or stops spontaneously Single episode of bleeding AND has not applied constant Yes direct pressure for 10 minutes by a clock Physician Contacted: Physician Instructions: No Care Advice: - Call provider if symptoms continue, worsen, or new symptoms develop. - GO TO THE ED IMMEDIATELY if bleeding continues after 2 attempts of constant direct pressure to the nose for a full 5 minutes by a clock (each attempt). - Keep the head higher than the level of the heart. Sit up or lie back a little with the head elevated. - SYMPTOM / CONDITION MANAGEMENT - Nosebleed Care: - Keep person calm; agitation may increase bleeding. - Sit in an upright position and tilt head forward. - Pinch all the soft parts of the nose just below the bony portion of the nose with the thumb and side of bent index finger. - Maintain firm pressure for a full 10 minutes by a clock. - Breathe through the mouth. - If bleeding is not stopped, apply pressure for another full 10 minutes by a clock. - Apply a cloth-covered ice pack to nose and cheeks. MEDICAL HISTORY Conditions: Condition Note: Medication: Medication Note: Allergy: Reaction: Procedure: Procedure Note: AL SCIENCES CHAIR documented in this encounter Plan of Treatment Not on file documented as of this encounter Visit Diagnoses Not on filedocumented in this encounter Care Teams Environmental Change Analyst Relationship Specialty Start Date End Date Clinic, [facility] [address] [place] [address] PCP - General 02/01/12 08/23/18 [place] [address] [place] [address] PCP - General 08/24/18 Ruslan Ruiz Chi, OD [address] [place] [address] Assigned Surgical Provider 05/02/20 09/05/21 Roosevelt Cueva MD [address] [place], [place] [address] Cardiovascular Disease 11/11/21 documented as of this encounter
[2024-09-05 16:31] VITALS: BP 120/64; PULSE 81; RESP 20; TEMP 36.6; O2SAT 88; BMI 19.7
--- NOTE | 2024-09-05 16:46 | ED.GENADULT ---
HPI - General Adult General Date Seen: 09/05/24 Chief complaint: Skin/Abscess/Foreign Body Stated complaint: possible infection in leg Time Seen by Provider: 09/05/24 16:46 History of Present Illness HPI narrative: 64-year-old female with a history of oxygen-dependent COPD, pulmonary hypertension, and hypercoagulability, eyes and anger syndrome, polycythemia, (?high hemoglobin?) on Xarelto, also with a history of 80 injury to her leg in June, (apparently at work on 06/13) about 3 months ago with subsequent blood blister/hematoma formation on her right lower extremity. She apparently had a DVT ultrasound that was negative at [facility] on 06/26 and then had I and D in the ER and was sent home on a course of cephalexin. She was seen in the ER in [place] on 07/07 for this hematoma with developed surrounding erythema. She was taken to the OR the following day on 07/08. Per surgery consult notes she had a lower extremity wound secondary to trauma with an associated area of necrosis that required debridement. Discharge with a course of clindamycin. Wound/tissue cultures from the OR ultimately negative. She had follow-up visits to the wound clinic in July. During the visit she had ABIs that were normal. Most recent follow-up visit was 08/27. Per those notes wound was improving, getting smaller. Per wound clinic notes wound was 1.9 x 0.6 x 0.4 cm in size. She has been doing her b.i.d. dressing changes as instructed and keeping the wound clean. Starting yesterday she noted that she has got some new redness around the wound and she is concerned it is getting infected. She is not having any fever or chills. No body aches. She does feel a little bit more tired than normal and run down but has no other systemic symptoms. With concern for spreading redness she came here to the ER today. She is worried she is getting a new infection Related Data Home Medications ?Medication ?Instructions ?Recorded ?Confirmed albuterol sulfate 90 mcg/actuation 2 puff inhalation Q4H PRN 11/06/22 07/08/24 aerosol inhaler fluticasone fur. 100 mcg-umeclid 1 inh inhalation DAILY 11/06/22 07/08/24 62.5 mcg-vilant 25 mcg inhalat.powder (Trelegy Ellipta) macitentan 10 mg tablet (Opsumit) 10 mg PO DAILY 11/06/22 09/05/24 rivaroxaban 20 mg tablet (Xarelto) 20 mg PO DAILY 11/06/22 09/05/24 sildenafil (pulm.hypertension) 20 40 - 60 mg PO TID 11/06/22 09/05/24 mg tablet (Revatio) tramadol 50 mg tablet 50 mg PO TID PRN 07/08/24 07/08/24 Previous Rx's ?Medication ?Instructions ?Recorded clindamycin HCl 300 mg capsule 300 mg PO Q6H 10 days #40 caps 07/08/24 hydrocodone 5 mg-acetaminophen 325 1 tab PO Q6H PRN pain #15 tabs 07/08/24 mg tablet sennosides 8.6 mg capsule (senna) 8.6 mg PO DAILY PRN constipation 07/08/24 #90 caps clindamycin HCl 300 mg capsule 300 mg PO TID #21 caps 09/05/24 Allergies Allergy/AdvReac Type Severity Reaction Status Date / Time oxycodone Allergy Unknown Shakiness Verified 11/06/22 12:32 Sulfa (Sulfonamide Allergy Unknown Rash Verified 11/06/22 12:32 Antibiotics) [facility] Social History Smoking Status: Never smoker Do you use any of these nicotine containing products: None How often do you have a drink containing alcohol: never How often do you have six or more drinks on one occasion: Never AUDIT-C Alcohol total score: 0 Non-prescribed substance use: denies use Exam Narrative: Exam Narrative: Constitutional: Appears well-developed and well-nourished. Alert. Conversant. Non toxic. Talking on the phone with her family. She is very polite. HENT: Head: Atraumatic. Nose: Nose normal. Mouth/Throat: Oral mucosa is clear and moist. no trismus. Pharynx normal. Tonsils symmetric. No tonsillar enlargement, erythema, or exudate. Eyes: Conjunctivae normal. EOM normal. Pupils equal, round, and reactive to light. No scleral icterus. Neck: Normal range of motion. Neck supple. No tracheal deviation present. Cardiovascular: Normal rate, regular rhythm. No gallop. No friction rub. No murmur heard. Symmetric radial artery pulses Pulmonary/Chest: Effort normal. No stridor. No respiratory distress. No wheezes. No rales. No rhonchi . No tenderness. Abdominal: Soft. Bowel sounds normal. No distension. No mass. No tenderness. No rebound. No guarding. Musculoskeletal: RUE: Normal range of motion. No tenderness. No deformity LUE: Normal range of motion. No tenderness. No deformity RLE: Normal range of motion in her hip, knee, ankle, toes. She has a dressing in place over the right distal/medial lower leg/stevenson. I took the dressing down. There is a chronic wound that is measuring about 2 or 3 cm x 1 cm. There is some a packing material in the wound which the patient had place there yesterday. Surrounding the superior and wound there is a rim of warmth and erythema with an indistinct border but approximately 1 cm medial and lateral to the wound and about 3 cm proximal from the wound. The skin adjacent to distal and the wound does not look erythematous. There is no palpable fluctuance. Subtle edema, but no fluctuance, no crepitus. The erythema has a somewhat indistinct border. I marked the leading edge of redness with a dotted line using a skin marking pen. Mild tenderness around the proximal and the wound. No deformity LLE: Normal range of motion. No edema. No tenderness. No deformity Lymph: No cervical adenopathy. Neurological: Alert and oriented to person, place, and time. Normal strength. CN II-VII intact. No sensory deficit. GCS eye subscore is 4. GCS verbal subscore is 5. GCS motor subscore is 6. Normal coordination Skin: Skin is warm and dry. No rash noted. No pallor. Normal capillary refill. Psychiatric: Normal mood. Normal affect. Const: Vital Signs, click to edit/add: Vital Signs - 24 hr 09/05/24 16:31 Temperature 97.8 F Pulse Rate [Pulse Oximeter] 81 Respiratory Rate 20 Blood Pressure [Ri ght Upper Arm] 120/64 Pulse Oximetry 88 Oxygen Delivery Me thod Room Air Course Vital Signs Vital signs: Initial Vital Signs Temperature 97.8 F 09/05/24 16:31 Temperature Source Temporal Artery Scan 09/05/24 16:31 Pulse Rate 81 09/05/24 16:31 Respiratory Rate 20 02/26/25 16:31 Blood Pressure 120/64 09/05/24 16:31 Blood Pressure Mean 82 09/05/24 16:31 Blood Pressure Position Sitting 09/05/24 16:31 Pulse Oximetry 88 09/05/24 16:31 Oxygen Delivery Method Room Air 09/05/24 16:31 Vital Signs Temperature 97.8 F 09/05/24 16:31 Pulse Rate 81 09/05/24 16:31 Respiratory Rate 20 09/05/24 16:31 Blood Pressure 120/64 09/05/24 16:31 Pulse Oximetry 88 09/05/24 16:31 Oxygen Delivery Method Room Air 09/05/24 16:31 Temperature 97.8 F 09/05/24 16:31 Pulse Rate 81 09/05/24 16:31 Respiratory Rate 20 09/05/24 16:31 Blood Pressure 120/64 09/05/24 16:31 Pulse Oximetry 88 09/05/24 16:31 Oxygen Delivery Method Room Air 09/05/24 16:31 Medical Decision Making MDM Narrative Medical decision making narrative: This patient presents for evaluation of skin redness. She has had a chronic wound on her right medial/distal stevenson for the past couple of months and it has been healing with care through the wound clinic. Beginning yesterday she started developed some increasing redness, new swelling, and pain around the proximal and the wound. She says the proximal end of the wound has the deeper hole and she has been applying packing there. She has not noticed any new purulent drainage. No fever or chills at home. She does feels a little bit run down The history, physical exam is consistent with cellulitis. There do not appear at this time to be any complication of cellulitis including abscess, necrotizing fascitis, lymphangitis, lymphadenitis, osteomyelitis, sepsis, or shock. The patient is not immunosuppressed or diabetic. Given her history, she has failed cephalexin therapy in June but did better on clinda. Will put her back on clindamycin to cover for skin sunil and possible community-acquired MRSA. Unfortunately she has allergy to sulfa which would contraindicate Bactrim. Supportive outpatient management is indicated with antibiotics. The patient is instructed to follow-up with primary care physician to ensure no progression and rapid resolution and given precautions to return if high fever, spread greater than 2cm outside of the marked area, worsening pain, vomiting or any other worsening. Questions answered and return precautions reviewed. Prescription for clindamycin 300 mg t.i.d. sent to her pharmacy [facility] in [place] Discharge Plan Discharge Clinical Impression: Cellulitis Patient Disposition: Home, Self-Care Condition: Stable Instructions: Cellulitis (ED) Additional Instructions: As we discussed, the redness of the skin on your right leg around your wound is worrisome that your developing a new infection (called ?cellulitis?). Please start on the antibiotics (called clindamycin) today. Monitor the reddened area carefully. If it is spreading outside of the dotted area or if you have other worsening symptoms such as worsening pain, increasing swelling, more pus draining from your wound, fever, please come back to the ER or see your doctors in the wound clinic right away. Even if you are getting better, Please call the wound clinic tomorrow to make an appointment to recheck on Tuesday. Prescriptions: New clindamycin HCl 300 mg capsule 300 mg PO TID Qty: 21 0RF No Action albuterol sulfate 90 mcg/actuation HFA aerosol inhaler 2 puff inhalation Q4H PRN sildenafil (pulm.hypertension) [Revatio] 20 mg tablet 40 - 60 mg PO TID Rx Instructions: 60mg am and noon, 40mg pm Opsumit 10 mg tablet 10 mg PO DAILY Trelegy Ellipta 100-62.5-25 mcg blister with device 1 inh inhalation DAILY Xarelto 20 mg tablet 20 mg PO DAILY tramadol 50 mg tablet 50 mg PO TID PRN hydrocodone-acetaminophen 5-325 mg tablet 1 tab PO Q6H PRN (Reason: pain) Qty: 15 0RF senna 8.6 mg capsule 8.6 mg PO DAILY PRN (Reason: constipation) Qty: 90 0RF clindamycin HCl 300 mg capsule 300 mg PO Q6H 10 Days Qty: 40 0RF Follow Up/Referrals: Carlos A Barajas MD [Primary Care Provider] - Stand Alone Forms: MyHealth Info Instructions
--- OUTSIDE RECORDS SUMMARY | 2024-09-05 17:18 | XMS_ITS | Clinical Summary ---
Author Organization [facility] Address [address] [place] [address] Care Team Providers Care Director Of Religious Activities Name Role Phone Coordinators, Pulmonary Htn Unavailable Carlos A Barajas DO Primary Care Provider [phone] Allergies Active Allergy Reactions Criticality Noted Date [...] Planning: Disease-specific Session Natalya Lynne is a [facility] patient. Her primary designer and patternmaker is Dr. Jesus Alarcon. Advance care planning discussions were completed with Natalya and her healthcare agent/friend, Andreea Alvarez and friend, Valery at [facility]. 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 If I have a stroke, the [...] efforts. They aren't putting in me the [employer]. HIGH SURVIVAL; LOW COGNITIVE STATUS: If Natalya [...] discussions with her Designated Health Care Agent: designer and patternmaker, other specialty provider, especially transplant team, other [...] advance care planning session: Upcoming assessment at [place] for liver transplant option. Questions identified for [...] nursing and rehabilitation services with eligibility, [facility] and future hospice care services. Informed [...] to her primary provider. Interviewer: Jadiel Palacio [facility] José Advance Care Planning Exercise Physiologist [phone] 04/29/2013 Chronic anticoagulation 12/20/2012 Menorrhagia 01/26/2012 Asthma 01/21/2012 Overview (01/21/2012): Diagnosed in childhood. On inhaled steroids; followed by [facility]; please see scanned report 01/05/12. Primary [...] Department Care Team Description 08/30/2024 10:00 AM AUTO CARE CENTER MANAGER Office Visit [facility] [address] [place] [address] Martin Lockwood DO Follow Up (2 yr COPD/asthma) 08/30/2024 Travel 08/23/2024 Telephone [facility] [address] [place] [phone] Christopher Mayo MD Questions 07/26/2024 4:30 PM AUTO CARE CENTER MANAGER Office Visit [facility] [address] [place] [address] Wilfredo Gutierrez MD CV Pulm Htn Est (PULMONARY HYPERTENTION PAST DUE FOLLOW UP /LABS PRIOR /I27.0 (ICD-10-CM) - Primary pulmonary hypertension (HC) /R06.02 (ICD-10-CM) - SOB (shortness of breath) //PCP: Carlos A Barajas DO/) 07/26/2024 3:30 PM AUTO CARE CENTER MANAGER Orders Only [facility] [address] [place] [address] Lab 07/26/2024 Travel 07/19/2024 Telephone [facility] [address] [place] [address] Wilfredo Gutierrez MD Prior Authorization (PH Medication Update ) 07/17/2024 Orders Only [facility] [address] [place] [address] Wilfredo Gutierrez MD <No scans attached> 07/16/2024 11:30 AM AUTO CARE CENTER MANAGER Office Visit [facility] [address] [place] [phone] Christopher Mayo MD Follow Up (Workers comp. DOI 06/14/24, Rt) lower leg , Hematoma) 07/16/2024 Travel 06/29/2024 Telephone [facility] [address] [place] [address] Christopher Mayo MD Failed Appointment (AV 1st missed appt) 06/20/2024 Refill [facility] [address] [place] [address] Martin Lockwood, Refill Request (oxygen rx) 06/15/2024 9:55 AM AUTO CARE CENTER MANAGER Ancillary Procedure [facility] [address] [place] [address] 06/15/2024 9:05 AM AUTO CARE CENTER MANAGER Office Visit [facility] [id number] [place] [phone] Harper Chu, LAB DIRECTOR Leg Injury 06/15/2024 Travel from Last 3 [...] on file Legal Sex Female 5:18 AM AUTO CARE CENTER MANAGER Gender Identity Not on file Sexual [...] Comments Blood Pressure 110/62 08/30/2024 10:08 AM AUTO CARE CENTER MANAGER Pulse 83 08/30/2024 10:08 AM AUTO CARE CENTER MANAGER Temperature 36.5 C (97.7 F) 06/15/2024 9:12 AM AUTO CARE CENTER MANAGER Respiratory Rate 16 08/30/2024 10:08 AM AUTO CARE CENTER MANAGER Oxygen Saturation 89% 08/30/2024 10:08 AM AUTO CARE CENTER MANAGER Inhaled Oxygen Concentration - - Weight 47.6 kg (105 lb) 08/30/2024 10:08 AM AUTO CARE CENTER MANAGER Height 152.4 cm (5') 08/30/2024 10:08 AM AUTO CARE CENTER MANAGER Body Mass Index 20.51 08/30/2024 10:08 AM AUTO CARE CENTER MANAGER Plan of Treatment Health Maintenance Due Date [...] Completed 04/02/2019 Medical Devices Implanted Type Area Tile Picker Device Identifier Shelf Expiration Date Model / Serial / Lot Cochlear Osia [id number] Bone Conduction Hearing Implant Implanted:Qty: 1 on 03/12/2022 by Federico Wiggins MD at [facility] Left: Ear Cochlear [employer] 08/27/2023 [id number] / [id number] / Description:BEHIND EAR LEFT SIDE Screw Cochlear 4mm Baha Bi300 [facility] - [id number] Implanted:Qty: 1 on 03/12/2022 by Federico Wiggins MD at [facility] Left: Ear Cochlear [employer] 12/30/2026 [id number] / / [id number] Procedures Procedure Name Priority Date/Time Associated Diagnosis Comments RED CELL MORPHOLOGY Routine 07/26/2024 2 :52 PM AUTO CARE CENTER MANAGER Primary pulmonary hypertension (HC) SOB (shortness of breath) HEPATIC FUNCTION PANEL Routine 07/26/2024 2:52 PM AUTO CARE CENTER MANAGER Primary pulmonary hypertension (HC) SOB (shortness of breath) CBC W PLT NO DIFF Routine 07/26/2024 2:5 2 PM AUTO CARE CENTER MANAGER Primary pulmonary hypertension (HC) SOB (shortness of breath) PRO-BNP Routine 07/26/2024 2:52 PM AUTO CARE CENTER MANAGER Primary pulmonary hypertension (HC) SOB (shortness of breath) BASIC METABOLIC PANEL Routine 07/26/2024 2:52 PM AUTO CARE CENTER MANAGER Primary pulmonary hypertension (HC) SOB (shortness of breath) XR TIBIA AND FIBULA 2 VIEWS RIGHT STAT 06/15/2024 9:56 AM AUTO CARE CENTER MANAGER Injury of right lower extremity, initial encounter HPV HIGH RISK Routine 09/09/2022 11:09 AM AUTO CARE CENTER MANAGER Screening for malignant neoplasm of the cervix [...] (ABNORMAL) RED CELL MORPHOLOGY (07/26/2024 2:52 PM AUTO CARE CENTER MANAGER) POLYCHROMASIA Slight 07/26/2024 3:32 PM AUTO CARE CENTER MANAGER [facility] RBC COMMENT Present(A) RBC morphology appears normal, RBC morphology within normal limits for newborns. 07/26/2024 3:32 PM AUTO CARE CENTER MANAGER [facility] Blood BLOOD SPECIMEN / Unknown Non-Lab Venipuncture / Unknown 07/26/2024 2:52 PM AUTO CARE CENTER MANAGER 07/26/2024 2:58 PM AUTO CARE CENTER MANAGER us Wilfredo Gutierrez MD HEMATOLOGY Final Res ult [facility] [address] [place] [address], [place] * (ABNORMAL) CBC W PLT NO DIFF (07/26/2024 2:52 PM AUTO CARE CENTER MANAGER) Pathologist [facility] WHITE BLOOD COUNT 7.6 4.5 - 11.0 thou/cu mm 07/26/2024 3:32 PM AUTO CARE CENTER MANAGER [facility] RED BLOOD COUNT 7.18(H) 4.00 - 5.20 mil/cu mm 07/26/2024 3:32 PM AUTO CARE CENTER MANAGER [facility] HEMOGLOBIN 17.5(H) 12.0 - 16.0 g/dL 07/26/2024 3:32 PM AUTO CARE CENTER MANAGER [facility] HEMATOCRIT 60.3(H) 33.0 - 51.0 % 07/26/2024 3:32 PM AUTO CARE CENTER MANAGER [facility] MCV 84 80 - 100 fL 07/26/2024 3:32 PM AUTO CARE CENTER MANAGER [facility] MCH 24.4(L) 26.0 - 34.0 pg 07/26/2024 3:32 PM AUTO CARE CENTER MANAGER [facility] MCHC 29.0(L) 32.0 - 36.0 g/dL 07/26/2024 3:32 PM AUTO CARE CENTER MANAGER [facility] RDW 19.5(H) 11.5 - 15.5 % 07/26/2024 3:32 PM AUTO CARE CENTER MANAGER [facility] PLATELET COUNT 217 140 - 440 thou/cu mm 07/26/2024 3:32 PM AUTO CARE CENTER MANAGER [facility] MPV 11.0 6.5 - 11.0 fL 07/26/2024 3:32 PM AUTO CARE CENTER MANAGER [facility] NRBC 0.0 % 07/26/2024 3:32 PM AUTO CARE CENTER MANAGER [facility] ABS NRBC 0.0 thou /cu mm 07/26/2024 3:32 PM AUTO CARE CENTER MANAGER [facility] Blood BLOOD SPECIMEN / Unknown Non-Lab Venipuncture / Unknown 07/26/2024 2:52 PM AUTO CARE CENTER MANAGER 07/26/2024 2:58 PM AUTO CARE CENTER MANAGER us Wilfredo Gutierrez MD HEMATOLOGY Final Res ult Performing Organization Address City/[facility]/ZIP Co de Phone Number [facility] [address] [place] [address], [place] * (ABNORMAL) PRO-BNP (07/26/2024 2:52 PM AUTO CARE CENTER MANAGER) PRO-BNP 246(H) <125 pg/mL 07/26/2024 3:44 PM AUTO CARE CENTER MANAGER [facility] Blood BLOOD SPECIMEN / Unknown Non-Lab Venipuncture / Unknown 07/26/2024 2:52 PM AUTO CARE CENTER MANAGER 07/26/2024 2:58 PM AUTO CARE CENTER MANAGER Narrative [facility] - 07/26/2024 3:44 PM AUTO CARE CENTER MANAGER The following cut-points have been suggested for [...] Gutierrez MD SEND OUTS Final Res ult [facility] [address] [place] [address], [place] * (ABNORMAL) HEPATIC FUNCTION PANEL (07/26/2024 2:52 PM AUTO CARE CENTER MANAGER) ALBUMIN 3.6(L) 4.0 - 4.9 g/dL 07/26/2024 3:44 PM AUTO CARE CENTER MANAGER [facility] PROTEIN,TOTAL 6.5 6.0 - 8.0 g/dL 07/26/2024 3:44 PM AUTO CARE CENTER MANAGER [facility] BILIRUBIN,TOTAL 0.5 0.0 - 1.2 mg/dL 07/26/2024 3:44 PM AUTO CARE CENTER MANAGER [facility] BILIRUBIN,DIRECT 0.1 0.0 - 0.2 mg/dL 07/26/2024 3:44 PM AUTO CARE CENTER MANAGER [facility] ALK PHOSPHATASE 86 35 - 104 IU/L 07/26/2024 3:44 PM AUTO CARE CENTER MANAGER [facility] ALT (SGPT) <5(L) 10 - 35 IU/L 07/26/2024 3:44 PM AUTO CARE CENTER MANAGER [facility] AST (SGOT) 24 10 - 35 IU/L 07/26/2024 3:44 PM AUTO CARE CENTER MANAGER [facility] Blood BLOOD SPECIMEN / Unknown Non-Lab Venipuncture / Unknown 07/26/2024 2:52 PM AUTO CARE CENTER MANAGER 07/26/2024 2:58 PM AUTO CARE CENTER MANAGER us Wilfredo Gutierrez MD CHEMISTRY Final Res ult [facility] [address], [place] [address], [place] * (ABNORMAL) BASIC METABOLIC PANEL (07/26/2024 2:52 PM AUTO CARE CENTER MANAGER) Pathologist [facility] SODIUM 138 136 - 145 mmol/L 07/26/2024 3:37 PM AUTO CARE CENTER MANAGER [facility] POTASSIUM 4.6 3.5 - 5.1 mmol/L 07/26/2024 3:37 PM AUTO CARE CENTER MANAGER [facility] CHLORIDE 103 98 - 107 mmol/L 07/26/2024 3:37 PM [facility] CO2,TOTAL 23 22 - 29 mmol/L 07/26/2024 3:37 PM AUTO CARE CENTER MANAGER [facility] ANION GAP 12 5 - 18 07/26/2024 3:37 PM [facility] GLUCOSE 131(H) 70 - 99 mg/dL 07/26/2024 3:37 PM [facility] CALCIUM 9.6 8.8 - 10.4 mg/dL 07/26/2024 3:37 PM [facility] Comment: Reference ranges for this test were updated on 05/15/2024 to reflect our healthy population more accurately. Reference range changes are not retroactively applied to results, but previous results using the same methodology can be interpreted in the context of the new reference range. BUN 11 8 - 23 mg/dL 07/26/2024 3:37 PM [facility] CREATININE 1.05(H) 0.50 - 0.90 mg/dL 07/26/2024 3:37 PM [facility] BUN/CREAT RATIO 10 10 - 20 3:37 PM [facility] eGFR 60(L) >90 mL/min/1. 73m2 07/26/2024 3:37 PM [facility] Comment:As of 2021, eG FR is calculated by the CKD-EPI creatinine equation without race adjustment. eGFR can be influenced by muscle mass, exercise, and diet. The reported eGFR is an estimation only and is only applicable if the renal function is stable. Blood BLOOD SPECIMEN / Unknown Non-Lab Venipuncture / Unknown 07/26/2024 2:52 PM AUTO CARE CENTER MANAGER 07/26/2024 2:58 PM AUTO CARE CENTER MANAGER us Wilfredo Gutierrez MD CHEMISTRY Final Res ult [facility] [address] [place] [address], [place] * XR TIBIA AND FIBULA 2 VIEWS RIGHT (06/15/2024 9:56 AM AUTO CARE CENTER MANAGER) Anatomical Region Laterality Modality Tibia Computed Radiogr aphy 06/15/2024 9:56 AM AUTO CARE CENTER MANAGER Impressions 06/15/2024 10:27 AM AUTO CARE CENTER MANAGER No evidence of a fracture. There is localized soft tissue edema along the medial aspects of the proximal two-thirds of the calf. Within these changes, there is a small soft tissue density in medial subcutaneous tissues of the distal calf, likely a hematoma. Narrative 06/15/2024 10:27 AM AUTO CARE CENTER MANAGER For Patients: As a result of the Cures Act, medical imaging exams and procedure reports are released immediately into your electronic medical record. You may view this report before your referring provider. If you have questions, please contact your health care provider. EXAM: XR TIBIA AND FIBULA 2 VIEWS RIGHT LOCATION: [facility] DATE: 06/15/2024 INDICATION: Injury of [...] TIBIA AND FIBULA 2 VIEWS RIGHT LOCATION: [facility] DATE: 06/15/2024 INDICATION: Injury of [...] * HPV HIGH RISK (09/09/2022 11:09 AM AUTO CARE CENTER MANAGER) TYPE 16 Negative Negative 09/14/2022 5:17 AM AUTO CARE CENTER MANAGER [facility] [employer] [facility] TYPE 18 Negative Negative 09/14/2022 5:17 AM AUTO CARE CENTER MANAGER [facility] [employer] OTHER HIGH RISK TYPES Negative Negative 09/14/2022 5:17 AM AUTO CARE CENTER MANAGER [facility] Other (Cervical) Non-Blood / Unknown 09/09/2022 11:09 AM AUTO CARE CENTER MANAGER 09/10/2022 10:38 AM AUTO CARE CENTER MANAGER Narrative [facility] - 09/14/2022 5:17 AM AUTO CARE CENTER MANAGER HPV types 16, 18, 31, 33, 35, 39, 45, 51, 52, 56, 58, 59, 66 and 68 DNA were undetectable or below the pre-set threshold. Methodology: Curtis Jani 4800 HPV Test Alexandr Headley MD MICROBIOLOG Y Final Result [facility] [address] [place] [address], [place] * XR MAMMO BILAT SCREENING (04/06/2019 [...] TOMOSYNTHESIS, w/CAD - 04/06/2019 11:50 AM. COMPARISON: [facility] 04/07/11 CLINICAL HISTORY: No current breast concerns. Paternal aunt, mother and maternal aunt with breast cancer. BREAST DENSITY: Heterogeneously dense. FINDINGS: No concerning findings. Procedure Note Willie Sargent MD - 04/06/2019 SCREENING MAMMOGRAM, BILATERAL, DIGITAL with DIGITAL BREAST TOMOSYNTHESIS, w/CAD - 04/06/2019 11:50 AM. COMPARISON: [facility] 04/07/11 CLINICAL HISTORY: No current breast concerns. [...] - 199 mg/dL 04/02/2019 7:54 PM CDT [facility] TRIGLYCERIDES 113 <150 mg/dL 04/02/2019 7:54 PM CDT [facility] HDL CHOLESTEROL 40(L) >40 mg/dL 9 7:54 PM CDT [facility] NON-HDL CHOLESTEROL 147(H) <145 mg/dl 04/02/2019 7:54 PM CDT [facility] CHOL/HDL RATIO 4.68(H) <4.50 04/02/2019 7:54 PM CDT [facility] LDL CHOLESTEROL 124 <=130 mg/dL 04/02/2019 7:54 PM CDT [facility] PROVIDER ORDERED STATUS RANDOM 04/02/2019 7:54 PM CDT [facility] Blood BLOOD SPECIMEN / Unknown Butterfly / Unknown 04/02/2019 12:46 PM CDT 04/02/2019 12:46 PM CDT us Carlos A Barajas DO CHEMISTRY Final Res ult [facility] [address] [place] [address], * ANTI HCV (04/02/2019 12:46 PM CDT) HEPATITIS C ANTIBODY Non-React casper Non-React casper 04/02/2019 8:01 PM CDT [facility] Comment:Antibodies to HCV no t detected; does not exclude the possibility of exposure to HCV. Blood BLOOD SPECIMEN / Unknown Butterfly / Unknown 04/02/2019 12:46 PM CDT 04/02/2019 12:46 PM CDT us Carlos A Barajas DO SEND OUTS Final Res ult [facility] [address] [place] [address], [place] * SCAN-COLONOSCOPY (09/23/2016 1:00 PM CDT) Narrative Procedure Note Dimitris Umaña MD - 09/23/2016 11:52 AM CDT [facility] [address] [facility], [address], [place] [address] Patient Name: Natalya Lynne Gender: Female Exam Date: 09/23/2016 Visit Number: [id number] Age: 56 Years Date of : 1960 Attending MD: Dimitris Umaña MD Medical Record#: [id number] ----- Procedure: Colonoscopy Indications: Colorectal cancer screening [...] to Health Maintenance Insurance HC MEDICARE PPS [facility] MR/MSHO MEDICARE PART A HB ONLY [facility] Member Subscriber Plan / Payer (Ef fective 2022-Present) Name:Natlaya Lynne Relation to Subscriber:Employee Name:[employer] Date of :1999 (Home) Address: [address] [place] [id number] Payer ID:Not on file Group ID:Not on file Type:Not on file Address: [address] MR/MSHO Advance Directives Documents on File Type Date Recorded Patient Oracle Bpm Developer Expl anation Treatment Guidelines 05/16/2013 12:22 PM [...] Status Discussion: Per Existing Order Care Teams Director Of Religious Activities Relationship Specialty [place] [address] [place] [address] PCP - General Family Practice 08/21/18 Coordinators, Pulmonary Htn 10/28/15
--- OUTSIDE RECORDS SUMMARY | 2024-09-05 17:18 | XMS_ITS | Encounter Summary ---
Author Organization Scott Address [facility] [place] [address] Care Team Providers Care Instructional Systems Design Consultant Name Role Phone Lisseth, José [place] Primary Care Provider Carlos A Barajas DO Primary Care Provider [phone] Ruslan Ruiz Chi OD Unavailable [phone] Roosevelt Cueva MD Unavailable [phone] Encounter Details Date Type Department Care Team (Late st Contact Info) Description 08/16/2018 [facility] Respiratory Therapy [address] [place] [phone] [place] [address] [place] [address] Moderate persistent asthma without complication (Primary Dx) Social History Tobacco Use Types Packs/Day Years Used Date Smoking Tobacco: Former Alcohol Use Standard Drinks/Week Comments Yes 0 (1 standard drink = 0.6 oz pur e alcohol) once a month Comments No Sex and Gender Information Value Date Recorded Sex Assigned at Not on file Legal Sex Female 3:05 AM LAND DEVELOPMENT MANAGER Gender Identity Not on file Sexual Orientation Not on file documented as of this encounter Plan of Treatment Not on file documented as of this encounter Results * General PFT Lab (Please always keep checked) (08/24/2018 2:15 PM LAND DEVELOPMENT MANAGER) FVC-Pred 2.92 L BREEZE PFT FVC-Pre 1.59 L [place]REEZE PFT FVC-%Pred-Pre 54 % [facility]ZE PFT FEV1-Pre 1.00 L [place]REEZE PFT FEV1-%Pred-Pre 43 % [place] PFT [id number]-Sxem 80 % [place]ZE PFT [id number] 63 % [place]REEZE PFT FEFMax-Pred 6.00 L/sec [place]REEZE PFT FEFMax-Pre 2.67 L/sec BREEZE PFT FEFMax-%Pred-Pr e 44 % [place]REEZE PFT [id number] 2.25 L/sec [place]REEZE PFT [id number] 0.52 L/sec [place]REEZE PFT DBT6197-%Pred-P re 23 % [place]ZE PFT [id number]-Qdhl 0.85 L/sec [place]REEZE PFT KEQ6854-%Pred-P ost 37 % BREEZE PFT ExpTime-Pre 10.13 sec BREEZE PFT FIFMax-Pre 1.07 L/sec [place]REEZE PFT VC-Pred 2.95 L [place] PFT VC-Pre 1.62 L [place]REEZE PFT VC-%Pred-Pre 54 % [place]REEZE PFT IC-Pred 2.05 L [place] PFT IC-Pre 1.15 L [place]REEZE PFT IC-%Pred-Pre 56 % [place]REEZE PFT ERV-Pred 0.90 L [place]REEZE PFT ERV-Pre 0.47 L [place]REEZE PFT ERV-%Pred-Pre 51 % [place]REEZE PFT [id number]-Ijbo 81 % [place]REEZE PFT [id number]-Hax 66 % [place]REEZE PFT FRCPleth-Pred 2.53 L [place]REEZE PFT FRCPleth-Pre 2.76 L BREEZE PFT FRCPleth-%Pred- Pre 109 % BREEZE PFT RVPleth-Pred 1.72 L [place]REEZE PFT RVPleth-Pre 2.29 L [place]REEZE PFT RVPleth-%Pred-P re 133 % BREEZE PFT TLCPleth-Pred 4.44 L BREEZE PFT TLCPleth-Pre 3.91 L BREEZE PFT TLCPleth-%Pred- Pre 88 % BREEZE PFT DLCOunc-Pred 18.44 ml/min/mmHg BREEZE PFT [id number]-Ustr 79 % [place]REEZE PFT [id number]-Mqz 62 % BREEZE PFT 08/24/2018 2:15 PM LAND DEVELOPMENT MANAGER Martin Rivera LoganEva DO PFT ORDERABLES Edit ed Result - Final BREEZE PFT documented in this encounter Visit Diagnoses Diagnosis Moderate persistent asthma without complication- Primary Unspecified asthma documented in this encounter Care Teams Instructional Systems Design Consultant Relationship Specialty Start Date End Date [facility], [address] [address] PCP - General 02/01/12 08/23/18 [place] [address] [place] [address] PCP - General 08/24/18 Ruslan Ruiz Chi, OD [address] [place] [address] Assigned Surgical Provider 05/02/20 09/05/21 Roosevelt Cueva MD [address] [place] [address] Cardiovascular Disease 11/11/21 documented as of this encounter
--- OUTSIDE RECORDS SUMMARY | 2024-09-05 17:18 | XMS_ITS | Patient Health Record ---
Author Organization [facility] Address [address] [place] [address] [address] [place] [address] Care Team Providers Care Tobacco Curer Name Role Phone Carlos A Barajas DO Primary Care Provider Unavailab Michele Shannon Unavailable [phone] Allergies Allergen (clinical drug ingredient) Drug/Non Drug Allergy documented on EMR Reaction Allergy Type Onset Date Status oxycodone oxyCODONE HCl Itching Drug Allergy 05/29/2020 Ac tive Substance with sulfonamide structure and antibacterial mechanism of action (substance) Sulfa Antibiotics UNK Drug Allergy 02/01/2012 Active Reason For Referral No Information Medications Medication SIG (Take, Route, Frequency, Duration) Notes Start Date End Date Status Lidocaine 2% as directed Topical TID Active Triamcinolone Acetonide 0.1 % APPLY TOPICALLY TO THE AFFECTED AREA THREE TIMES DAILY Diagnosis Unavailable External for 25 Active Multivitamin - 1 tablet Orally Once a day Active Xarelto 20 MG TAKE 1 TABLET BY MOUTH EVERY DAY WITH THE EVENING MEAL Diagnosis Unavailable Oral for 90 Active Loratadine 10 MG 1 tablet Orally Once a day Active Hydrocortisone 2.5 % 1 application Externally Once a day Active traMADol HCl 50 MG 1 tablet as needed Orally BID for 15 days G89.29 Other chronic pain M47.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, lumbosacral region 04/09/2021 Active Sildenafil Citrate 20 MG null Diagnosis Unavailable Oral for 30 Active Trelegy Ellipta 100-62.5-25 MCG/INH Inhalation for 30 Act casper Calcium + Vitamin D3 Active Methocarbamol 750 MG Oral for 10 Active Baclofen 10 MG Oral for 28 Act casper traMADol HCl 50 MG Oral for 7 Active Albuterol Sulfate HFA 108 (90 Base) MCG/ACT INHALE 2 PUFFS BY MOUTH EVERY 4 HOURS NEEDED Diagnosis Unavailable Inhalation for 16 Active Opsumit 10 MG Oral for 30 Acti ve Social History Tobacco Use: Social History Observation Description Date Details (start date - stop date) Never Smoker NA - NA Tobacco Use/Smoking: Question Answer Notes Are you a nonsmoker Alcohol Screen Question Answer Notes Did you have a drink contain ing alcohol in the past year? Yes How often did you have a dri nk containing alcohol in the past year? 2 to 4 times a month (2 points) How many drinks did you have on a typical day when you were drinking in the past year? 1 or 2 drinks (0 point) How often did you have 6 or more drinks on one occasion in the past year? Never (0 point) Points 2 Interpretation Negative Problems Problem Type SNOMED Code ICD Code Onset Dates Problem Status W/U Status Risk Notes Problem Chronic pain (13972099) Other chronic pain (G89.29) Active confirmed Problem Thoracic spondylosis without myelopathy (882578990) Spondylosis without myelopathy or radiculopathy, thoracic region (M47.814) Active confirmed Problem Lumbosacral spondylosis without myelopathy (02523752) Spondylosis without myelopathy or radiculopathy, lumbosacral region (M47.817) Active confirmed Problem Pain in thoracic spine (553340790) Pain in thoracic spine (M54.6) Active confirmed Plan Of Treatment Pending Test Test Name Order Date MRI : Thoracic Spine 01/29/2021 Insurance Providers Payer Name Payer Address Payer Phone Subscriber Number Group Number Insured Name Patient Relationship to Insured Coverage Start Date Coverage End Date [facility] [employer] [address] [address] [place] [address] [id number] Natalya Lynne Self - patient is the insured 9 Medicare Part B [employer] [address] [place] [address] [id number] Natalya Lynne Self - patient is the insured 3 Medical (General) History Medical History History ICD Code COPD asthma Claustrophobia headaches hearing loss Hypertension migraine headaches Surgical History Surgery Date(Month/Year)
--- OUTSIDE RECORDS SUMMARY | 2024-09-05 17:18 | XMS_ITS | Clinical Summary ---
Author Organization [facility] Address [address] [place] [address] Care Team Providers Care Bottling Room Worker Name Role Phone Carlos A Barajas Primary Care Provider [phone] Roosevelt Cueva MD Unavailable [phone] Allergies Active Allergy Reactions Criticality Noted Date Comments Oxycodone-Acetaminophen Itching 05/29/2020 Sulfa Antibiotics 02/01/2012 Medications calcium carbonate (OS-PRABHAKAR 500 MG [place]. [place]) 500 MG tablet Take 500 mg [...] Planning: Disease-specific Session Natalya Lynne is a [facility] patient. Her primary sandwich board carrier is Dr. Jesus Alarcon. Advance care planning discussions were completed with Natalya and her healthcare agent/friend, Andreea Alvarez and friend, Valery at [facility]. Understanding of Illness and Disease [place]: Natalya identifies her medical condition as progressive [...] include deaths of her parents and grandfather. Natlaya's father due to heart failure after farm [...] treatments if she would dependent and needed group home intermediate care. If I have a stroke, the [...] They aren't putting in me the [facility]. HIGH SURVIVAL; LOW COGNITIVE STATUS: If [...] discussions with her Designated Health Care Agent: sandwich board carrier, other specialty provider, especially transplant team, other [...] advance care planning session: Upcoming assessment at [facility] for liver transplant option. Questions identified for [...] rehabilitation services with eligibility, senior [facility] services and future hospice care services. [...] to her primary provider. Interviewer: Jadiel Palacio [facility] José Advance Care Planning Dental Cream Maker [phone] 04/29/2013 SOB (shortness of breath) 04/09/2013 Chronic anticoagulation 12/20/2012 Asthma 01/21/2012 Overview (03/06/2020): Overview: Diagnosed in childhood. On inhaled steroids; followed by [facility]; please see scanned report 01/05/12. Primary pulmonary hypertension 05/29/2010 Encounters Date Type Department Care Team Description 06/20/2024 9:48 AM SUPERVISOR OF OFFICIALS - 06/20/2024 1:00 PM [facility] Dept [address] [place] [id number] Wilber Vasquez MD Hematoma of right lower [...] on file Legal Sex Female 3:05 AM SUPERVISOR OF OFFICIALS Gender Identity Not on file Sexual Orientation Not on file Last Filed Vital Signs Vital Sign Reading Time Taken Comments Blood Pressure 134/98 06/20/2024 12:49 PM SUPERVISOR OF OFFICIALS Pulse 83 06/20/2024 12:00 PM SUPERVISOR OF OFFICIALS Temperature 36.4 C (97.5 F) 06/20/2024 9:41 AM SUPERVISOR OF OFFICIALS Respiratory Rate 20 06/20/2024 12:49 PM SUPERVISOR OF OFFICIALS Oxygen Saturation 91% 06/20/2024 12:49 PM SUPERVISOR OF OFFICIALS Inhaled Oxygen Concentration - - Weight 49.4 kg (109 lb) 06/20/2024 9:41 AM SUPERVISOR OF OFFICIALS Height 154.9 cm (5' 1) 06/20/2024 9:41 AM SUPERVISOR OF OFFICIALS Body Mass Index 20.6 06/20/2024 9:41 AM SUPERVISOR OF OFFICIALS Plan of Treatment Health Maintenance Due Date [...] VENOUS DUPLEX RIGHT STAT 06/20/2024 11:50 AM SUPERVISOR OF OFFICIALS CBC WITH PLATELETS & DIFFERENTIAL STAT 06/20/2024 10:27 AM SUPERVISOR OF OFFICIALS RBC AND PLATELET MORPHOLOGY STAT 06/20/2024 10:27 AM SUPERVISOR OF OFFICIALS CBC WITH PLATELETS AND DIFFERENTIAL STAT 06/20/2024 10:27 AM SUPERVISOR OF OFFICIALS BASIC METABOLIC PANEL STAT 06/20/2024 10:27 [address]S [address] CHEST W/O CONTRAST STAT 05/29/2020 2:25 PM SUPERVISOR OF OFFICIALS COLONOSCOPY Routine 09/29/2016 12:39 PM CDT from Last 3 Months or Most Recently Relevant to Health Maintenance Results * US Lower Extremity Venous Duplex Right (06/20/2024 11:50 AM SUPERVISOR OF OFFICIALS) Anatomical Region Laterality Modality Lower Extremity Ultrasound Impressions 06/20/2024 1:02 PM SUPERVISOR OF OFFICIALS IMPRESSION: 1. Negative for DVT in the visualized veins of the right lower extremity. Somewhat difficult to visualize the posterior tibial veins. 2. Heterogeneous collection underlying the area of bruise measuring 8.1 x 2.4 x 3.6 cm probable hematoma. MISHLE ROYAL MD Narrative 06/20/2024 1:02 PM SUPERVISOR OF OFFICIALS VENOUS ULTRASOUND RIGHT LOWER EXTREMITY 06/20/2024 11:50 [...] hematoma. MISHEL ROYAL MD Wilber Vasquez MD [facility] US ORDERABLES Final Resul t * RBC and Platelet Morphology (06/20/2024 10:27 AM SUPERVISOR OF OFFICIALS) RBC Morphology Confirmed RBC Indices 06/20/2024 1:27 PM SUPERVISOR OF OFFICIALS [facility] Platelet Assessment Automated Count Confirmed. Platelet morphology is normal. Automated Count Confirmed. Platelet morphology is normal. [facility] 06/20/2024 1:27 PM SUPERVISOR OF OFFICIALS [facility] Blood BLOOD SPECIMEN / Unknown Venipuncture / Unknown 06/20/2024 10:27 AM SUPERVISOR OF OFFICIALS 06/20/2024 10:46 AM SUPERVISOR OF OFFICIALS Wilber Vasquez MD LAB - BLOOD ORDERABLES Final Result [facility] Lab [address] Lab (1st floor, no room number) [place] [address], [facility] * (ABNORMAL) CBC with platelets and differential (06/20/2024 10:27 AM SUPERVISOR OF OFFICIALS) WBC Count 9.6 4.0 - 11.0 10e3/uL 06/20/2024 1:27 PM SUPERVISOR OF OFFICIALS [facility] RBC Count 7.38(H) 3.80 - 5.20 10e6/uL 06/20/2024 1:27 PM [facility]PER[facility] OF OFFICIALS [facility] Hemoglobin 19.1(H) 11.7 - 15.7 g/dL 06/20/2024 1:27 PM SU[facility] OFFICIALS [facility] Hematocrit 62.8(H) 35.0 - 47.0 % 06/20/2024 1:27 PM SUPERVISOR [facility] OFFICIALS [facility] MCV 85 78 - 100 fL 06/20/2024 1:27 PM SUPERVISOR OF OFFICIALS [facility] MCH 25.9(L) 26.5 - 33.0 pg 06/20/2024 1:27 PM SUPERVISOR OF OFFICIALS [facility] MCHC 30.4(L) 31.5 - 36.5 g/dL 06/20/2024 1:27 PM SUPERVIS[facility] OFFICIALS [facility] RDW 21.1(H) 10.0 - 15.0 % 06/20/2024 1:27 PM SUPER[facility] OF OFFICIALS [facility] Platelet Count 142(L) 150 - 450 10e3/uL 06/20/2024 1:27 PM [facility] OFFICIAL[facility] % Neutrophils 76 % 06/20/2024 1:27 PM [facility] OFFICIALS [facility] % Lymphocytes 9 % 06/20/2024 1:27 PM [facility] OFFICIAL[facility] % Monocytes 10 % 06/20/2024 1:27 PM [facility] OFFICIAL[facility] % Eosinophils 2 % 06/20/2024 1:27 PM [facility] OFFICIAL[facility] % Basophils 1 % 06/20/2024 1:27 PM [facility]PER[facility] OFFICIALS [facility] % Immature Granulocytes 2 % 06/20/2024 1:27 PM SUPERVIS[facility] OFFICIALS [facility] NRBCs per 100 WBC 0 <1 /100 024 1:27 PM SUPERVISOR OF OFFICIALS [facility] Absolute Neutrophils 7.3 1.6 - 8.3 10e3/uL 06/20/2024 1:27 PM SUPER[employer] OFFICIALS LABORATORY Absolute Lymphocytes 0.8 0.8 - 5.3 10e3/uL 06/20/2024 1:27 PM SUPERVISOR OF OFFICIALS LABORATORY Absolute Monocytes 1.0 0.0 - 1.3 10e3/uL 06/20/2024 1:27 PM SUPER[facility] OF OFFICIALS LABORATORY Absolute Eosinophils 0.2 0.0 - 0.7 10e3/uL 06/20/2024 1:27 PM SUPER[employer]OR OF OFFICIALS LABORATORY Absolute Basophils 0.1 0.0 - 0.2 10e3/uL 06/20/2024 1:27 PM SUPER[employer]OR OF OFFICIALS LABORATORY Absolute Immature Granulocytes 0.2 <=0.4 10e3/uL 06/20/2024 1:27 PM SUPER[employer] OF OFFICIALS LABORATORY Absolute NRBCs 0.0 10e3/uL 06/20/2024 1:27 PM SUPER[facility]OR [employer] OFFICIALS LABORATORY Blood BLOOD SPECIMEN / Unknown Venipuncture / Unknown 06/20/2024 10:27 AM SUPERVISOR OF OFFICIALS 06/20/2024 10:46 AM SUPERVISOR OF OFFICIALS us Wilber Vasquez MD LAB - BLOOD ORDERABLES Final Result LABORATORY [facility] Care Lab [address] Lab (1st floor, no room number) [place] [address] * (ABNORMAL) Basic metabolic panel (06/20/2024 10:27 AM SUPERVISOR OF OFFICIALS) Sodium 135 135 - 145 mmol/L 06/20/2024 11:16 AM [facility] Potassium 4.5 3.4 - 5.3 mmol/L 06/20/2024 11:16 AM [facility] Chloride 97(L) 98 - 107 mmol/L 06/20/2024 11:16 AM [facility] Carbon Dioxide (CO2) 23 22 - 29 mmol/L 06/20/2024 11:16 AM [facility] Anion Gap 15 7 - 15 mmol/L 06/20/2024 11:16 AM [facility] Urea Nitrogen 15.9 8.0 - 23.0 mg/dL 06/20/2024 11:16 AM [facility] Creatinine 0.86 0.51 - 0.95 mg/dL 06/20/2024 11:16 AM [employer] [employer] OFFICIALS LABORATORY GFR Estimate 75 >60 mL/min/1.7 3m2 06/20/2024 11:16 AM [facility] [employer] OFFICIALS LABORATORY Comment:eGFR calculated usin 2020 CKD-EPI equation. Calcium 9.5 8.8 - 10.4 mg/dL 06/20/2024 11:16 AM SUPERVISOR OF OFFICIALS LABORATORY Comment:Reference intervals for this test were updated on 01/24/2024 to reflect our healthy population more accurately. There may be differences in the flagging of prior results with similar values performed with this method. Those prior results can be interpreted in the context of the updated reference intervals. Glucose 124(H) 70 - 99 mg/dL 06/20/2024 11:16 AM SUPER[facility]OR OF OFFICIALS LABORATORY Blood BLOOD SPECIMEN / Unknown Venipuncture / Unknown 06/20/2024 10:27 AM SUPERVISOR OF OFFICIALS 06/20/2024 10:46 AM SUPERVISOR OF OFFICIALS us Wilber Vasquez MD LAB - BLOOD ORDERABLES Final Result LABORATORY [facility] Lab [address] Lab (1st floor, no room number) [place] [address], [facility] * Chest CT w/o contrast (05/29/2020 2:25 PM SUPERVISOR OF OFFICIALS) Anatomical Region Laterality Modality Chest, SUBRAD CT BODY, UMP CT CHEST, RAD CT Computed Tomography Impressions 05/29/2020 4:07 PM SUPERVISOR OF OFFICIALS IMPRESSION: 1. No acute fractures are seen. No effusions or pneumothorax. 2. Subtle small groundglass opacities in both lungs may relate to an atypical infectious etiology versus an inflammatory etiology. 3. Coronary artery calcifications. 4. Gallstones. GLORIA GALDAMEZ MD Narrative 05/29/2020 4:07 [address]S [address] CHEST WITHOUT CONTRAST 05/29/2020 2:25 PM [...] * COLONOSCOPY (09/29/2016 12:39 PM CDT) COLONOSCOPY [facility] Patient Name: Natalya Lynne Procedure Date: 09/29/2016 12:39 PM Date of : 1960 Admit Type: Inpatient Age: 56 Gender: Female Attending MD: Brenton Houston MD Total Sedation Time: Instrument Name: 123 [...] monitored continuously. The Olympus Adult Colonoscope Model #CF-ES053K, [place]#123, SN#[id number] was introduced through the anus and advanced [...] Advance Directives For more information, please contact: [phone] * Full Code (Latest Code Status on File) Date Activated Date Inactivated Comments 09/30/2016 12:56 PM 03/05/2020 2:38 PM * Full Code Date Activated Date Inactivated Comments 09/26/2016 1:09 PM 09/30/2016 12:56 PM Care Teams Bottling Room Worker Relationship Specialty [place] [address] [place] [address] PCP - General 08/24/18 Roosevelt Cueva MD [address] [place] [address] Cardiovascular Disease 11/11/21
--- OUTSIDE RECORDS SUMMARY | 2024-09-05 17:18 | XMS_ITS | Encounter Summary ---
Author Organization [facility] Address [facility] [place] [address] Care Team Providers Care Pretzel Twisting Machine Operator Name Role Phone Lisseth, José Rodanthe Primary Care Provider Carlos A Barajas DO Primary Care Provider [phone] Ruslan Ruiz Chi, OD Unavailable [phone] Roosevelt Cueva MD Unavailable [phone] Reason for Visit * Reason Onset Date [...] on file Legal Sex Female 3:05 AM GROCERY DEPARTMENT MANAGER Gender Identity Not on file Sexual Orientation Not on file documented as of this encounter Miscellaneous Notes * Telephone Encounter - Jade Hinton - 05/17/2013 4:38 PM CST [facility] Triage Call Report Patient Name: Natalya Lynne Call Date & Time: 03/16/2013 8:27:02PM Patient PCP Name: Patient Address: [address] [place] [address] [address] [place], [place] [id number] Patient Date of : 1960 Age: 53 yr. Patient Gender: Female Private Sector Executive Name: Sophia Sosa Presenting Problem: I've had [...] Medication Note: Allergy: Reaction: Procedure: Procedure Note: ERY DEPARTMENT MANAGER documented in this encounter Plan of Treatment Not on file documented as of this encounter Visit Diagnoses Not on filedocumented in this encounter Care Teams Pretzel Twisting Machine Operator Relationship Specialty Start Date End Date Clinic, [facility] [address] [place] [address] PCP - General 02/01/12 08/23/18 [place] [address] [place] [address] PCP - General 08/24/18 Ruslan Ruiz Chi, OD [address] [place] [address] Assigned Surgical Provider 05/02/20 09/05/21 Roosevelt Cueva MD [address], [place] [id number] Cardiovascular Disease 11/11/21 documented as of this encounter
--- OUTSIDE RECORDS SUMMARY | 2024-09-05 17:19 | XMS_ITS | Clinical Summary ---
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
--- OUTSIDE RECORDS SUMMARY | 2024-09-05 17:19 | XMS_ITS | Referral Summary ---
Author Organization [facility] Address [address] [place] [address] Care Team Providers Care Medical Assembly Name Role Phone Carlos A Barajas Primary Care Provider [phone] Clinic, Not Listed Unavailable Unavailable Allergies Active [...] on file Legal Sex Female 11:15 AM ACADEMIC HOSPITALIST Gender Identity Not on file Sexual Orientation [...] Plan of Treatment Not on file Insurance [facility] MEDICARE ADVANTAGE Care Teams Medical Assembly Relationship Specialty Start [place] [address] [place] [address] PCP - General Family Medicine 07/21/21 Clinic, Not Listed PCP - Primary Care Clinic 07/21/21
--- NOTE | 2024-09-05 17:31 | ED.NURSE ---
unable to assess pt leg d/t MD discharging pt before being seen.
== END 2024-09-05 17:27 | disposition home or self-care (01) ==
LOC: ED 17:16
PROVIDERS: Emergency Provider Emergency Medicine; PCP Orthopaedic Surgery
DX: L03.115 Cellulitis of right lower limb (principal)
CPT/HCPCS: 99282; 99283; 99284

== ENCOUNTER 2024-09-10 11:38 | Outpatient (CLI) | payer MEDICARE, SELFPAY | END 2024-09-10 11:39 | disposition home or self-care (01) | LOC: WOUND 11:38 | PROVIDERS: PCP Orthopaedic Surgery; Visit Provider Nurse Practitioner Family | DX: T81.31XA Disruption of external operation (surgical) wound, not elsewhere classified, initial encounter (principal); L97.818 Non-pressure chronic ulcer of other part of right lower leg with other specified severity; I27.81 Cor pulmonale (chronic); I27.20 Pulmonary hypertension, unspecified; Z79.01 Long term (current) use of anticoagulants | CPT/HCPCS: 97597 ==

== ENCOUNTER 2024-09-17 11:09 | Outpatient (CLI) | payer MEDICARE, SELFPAY | END 2024-09-17 11:10 | disposition home or self-care (01) | LOC: WOUND 11:09 | PROVIDERS: PCP Orthopaedic Surgery; Visit Provider Nurse Practitioner Family | DX: I87.311 Chronic venous hypertension (idiopathic) with ulcer of right lower extremity (principal); L97.812 Non-pressure chronic ulcer of other part of right lower leg with fat layer exposed; I27.81 Cor pulmonale (chronic); Z79.01 Long term (current) use of anticoagulants | CPT/HCPCS: 97597 ==

== ENCOUNTER 2024-09-24 11:19 | Outpatient (CLI) | payer MEDICARE, SELFPAY | END 2024-09-24 11:20 | disposition home or self-care (01) | LOC: WOUND 11:20 | PROVIDERS: PCP Orthopaedic Surgery; Visit Provider Nurse Practitioner Family | DX: I87.311 Chronic venous hypertension (idiopathic) with ulcer of right lower extremity (principal); L97.812 Non-pressure chronic ulcer of other part of right lower leg with fat layer exposed; Y99.0 Civilian activity done for income or pay | CPT/HCPCS: 97597 ==

== ENCOUNTER 2024-10-01 11:14 | Outpatient (CLI) | payer MEDICARE, SELFPAY | END 2024-10-01 11:15 | disposition home or self-care (01) | LOC: WOUND 11:14 | PROVIDERS: PCP Orthopaedic Surgery; Visit Provider Nurse Practitioner Family | DX: I87.311 Chronic venous hypertension (idiopathic) with ulcer of right lower extremity (principal); L97.818 Non-pressure chronic ulcer of other part of right lower leg with other specified severity; I27.81 Cor pulmonale (chronic); Z79.01 Long term (current) use of anticoagulants | CPT/HCPCS: 97602 ==

== ENCOUNTER 2024-10-08 11:21 | Outpatient (CLI) | payer MEDICARE, SELFPAY | END 2024-10-08 11:22 | disposition home or self-care (01) | LOC: WOUND 11:21 | PROVIDERS: PCP Orthopaedic Surgery; Visit Provider Nurse Practitioner Family | DX: I87.311 Chronic venous hypertension (idiopathic) with ulcer of right lower extremity (principal); L97.815 Non-pressure chronic ulcer of other part of right lower leg with muscle involvement without evidence of necrosis; I27.81 Cor pulmonale (chronic); Z79.01 Long term (current) use of anticoagulants | CPT/HCPCS: 11043 ==

== ENCOUNTER 2024-10-15 10:57 | Outpatient (CLI) | payer MEDICARE, SELFPAY | END 2024-10-15 10:58 | disposition home or self-care (01) | LOC: WOUND 10:57 | PROVIDERS: Visit Provider Surgery | DX: I87.311 Chronic venous hypertension (idiopathic) with ulcer of right lower extremity (principal); L97.815 Non-pressure chronic ulcer of other part of right lower leg with muscle involvement without evidence of necrosis; I27.81 Cor pulmonale (chronic); Z79.01 Long term (current) use of anticoagulants | CPT/HCPCS: G0463 ==

== ENCOUNTER 2024-10-29 11:18 | Outpatient (CLI) | payer MEDICARE, SELFPAY | END 2024-10-29 11:19 | disposition home or self-care (01) | LOC: WOUND 11:18 | PROVIDERS: Visit Provider Nurse Practitioner Family | DX: I87.311 Chronic venous hypertension (idiopathic) with ulcer of right lower extremity (principal); L97.813 Non-pressure chronic ulcer of other part of right lower leg with necrosis of muscle; I27.81 Cor pulmonale (chronic); Z79.01 Long term (current) use of anticoagulants; Q25.0 Patent ductus arteriosus | CPT/HCPCS: 11042; 87070; 87186; G0463 ==

== ENCOUNTER 2024-11-13 09:35 | Outpatient (CLI) | payer MEDICARE, SELFPAY | END 2024-11-13 09:36 | disposition home or self-care (01) | LOC: WOUND 09:35 | PROVIDERS: Visit Provider Nurse Practitioner Family | DX: I87.311 Chronic venous hypertension (idiopathic) with ulcer of right lower extremity (principal); L97.815 Non-pressure chronic ulcer of other part of right lower leg with muscle involvement without evidence of necrosis; I27.81 Cor pulmonale (chronic); Z79.01 Long term (current) use of anticoagulants | CPT/HCPCS: 11042 ==

== ENCOUNTER 2024-11-28 10:15 | Outpatient (CLI) | payer MEDICARE, SELFPAY | END 2024-11-28 10:16 | disposition home or self-care (01) | LOC: WOUND 10:15 | PROVIDERS: Visit Provider Nurse Practitioner Family | DX: I87.311 Chronic venous hypertension (idiopathic) with ulcer of right lower extremity (principal); L97.812 Non-pressure chronic ulcer of other part of right lower leg with fat layer exposed; I27.83 Eisenmenger's syndrome; Z79.01 Long term (current) use of anticoagulants | CPT/HCPCS: 11042 ==

== ENCOUNTER 2024-12-11 10:17 | Outpatient (CLI) | payer MEDICARE, SELFPAY | END 2024-12-11 10:18 | disposition home or self-care (01) | LOC: WOUND 10:17 | PROVIDERS: Visit Provider Nurse Practitioner Family | DX: I87.301 Chronic venous hypertension (idiopathic) without complications of right lower extremity (principal); I27.83 Eisenmenger's syndrome; I27.81 Cor pulmonale (chronic); Z79.01 Long term (current) use of anticoagulants | CPT/HCPCS: G0463 ==